=== PATIENT | male | born 1980 | race Caucasian/White ===

== ENCOUNTER 2019-06-18 12:16 | Emergency (ER) | payer BC ==
[2019-06-18] MEDS ORDERED: NA CHLORIDE 0.9% 1,000 ML ONE ×2 (13:10→16:17)
[2019-06-18] MEDS ORDERED: FAMOTIDINE 20 MG/2 ML VIAL IV ONE (13:10)
[2019-06-18 13:24] LABS: Absolute Lymphocytes (CBC) 1.5 K/uL (0.7-4.9); Basophils % 0.7 % (0-1.3); Lymphocytes % 22.1 % (15.3-44.8); MPV 6.1 fL (7.6-11.3); RBC Red Blood Cell Count 3.67 M/uL (4.33-5.43)
[2019-06-18 13:35] LABS: ALT/SGPT 8 U/L (12-78); AST/SGOT 6 U/L (15-37); Albumin 1.8 g/dL (3.4-5.0); Alkaline Phosphatase 37 U/L (45-117); BUN Blood Urea Nitrogen 13 mg/dL (7-18); Bicarbonate 27 mmol/L (21-32); Bilirubin Direct < 0.1 mg/dL (0-0.2); Bilirubin Total 0.1 mg/dL (0.2-1.0); Glucose Level 96 mg/dL (74-106); Lipase 99 U/L (73-393); Potassium 3.6 mmol/L (3.5-5.1); Protein, Total 5.9 g/dL (6.4-8.2); Sodium Level 139 mmol/L (136-145)
--- NOTE | 2019-06-18 14:33 | RAD REPORT ---
EXAM DESCRIPTION: CTAbdomen Pelvis W Contrast - 06/18/2019 2:14 pm CLINICAL HISTORY: Abdominal pain. Diarrhea;Abd pain COMPARISON: No comparisons TECHNIQUE: Biphasic CT imaging of the abdomen and pelvis was performed with 100 ml non-ionic IV cont rast. All CT scans are performed using dose optimization technique as appropriate and may include automated exposure control or mA/KV adjustment according to patient size. FINDINGS: The lung bases are clear. The liver, spleen, pancreas, adrenal glands and kidneys are within normal limits. No bowel obstruction, free air or abscess. Moderate inflammatory changes are present involving the co puneet. The appendix is not identified as a discrete structure, however, no secondary findings of append icitis are identified. Mild free fluid is seen in the pelvis. No evidence of significant lymphadenop athy. No suspicious bony findings. IMPRESSION: Moderate diffuse colitis pattern is present. No pneumatosis coli seen.
--- NOTE | 2019-06-18 16:57 | ER ---
Nurse's Notes [facility] Name: Jose Armando Culver Age: 39 yrs Sex: Male : 1980 Arrival Date: 06/18/2019 Time: 12:19 Bed 20 Private MD: Margaret Espinoza H Diagnosis: Diarrhea, unspecified;Ulcerative (chronic) pancolitis Presentation: 06/17 12:24 Chief complaint: Patient states: Walking around the kitchen when suddenly passed out. ca1 Fell backward against the wall. Denies any pain at this time. Denies cough, congestion and fever. Coronavirus screen: Patient denies fever greater than 100.4F, cough, shortness of breath, or difficulty breathing. Proceed with normal triage process. Ebola Screen: Patient negative for fever greater than or equal to 101.5 degrees Fahrenheit, and additional compatible Ebola Virus Disease symptoms Patient denies exposure to infectious person. Patient denies travel to an Ebola-affected area in the 21 days before illness onset. No symptoms or risks identified at this time. Initial Sepsis Screen: Does the patient meet any 2 criteria? No. Patient's initial sepsis screen is negative. Does the patient have a suspected source of infection? No. Patient's initial sepsis screen is negative. Risk Assessment: Do you want to hurt yourself or someone else? Patient reports no desire to harm self or others. Onset of symptoms was June 18, 2019. 12:24 Method Of Arrival: Ambulatory ca1 12:24 Acuity: JOHN 3 ca1 Triage Assessment: 13:18 General: Appears in no apparent distress. uncomfortable, Behavior is calm, cooperative, vc appropriate for age. Pain:. Historical: - Allergies: 12:28 No Known Allergies; ca1 - Home Meds: 12:28 mesalamine oral oral 1 cap 2 times per day [Active]; ca1 - PMHx: 12:28 Ulcerative cholitis; ca1 - PSHx: 12:28 None; ca1 - Immunization history:: Adult Immunizations up to date, Flu vaccine is not up to date. - Social history:: Smoking status: Patient denies any tobacco usage or history of. Screenin:17 Abuse screen: Denies threats or abuse. Nutritional screening: No deficits noted. vc Tuberculosis screening: No symptoms or risk factors identified. Fall Risk Fall in past 12 months (25 points). No secondary diagnosis (0 pts). IV access (20 points). Ambulatory Aid- None/Bed Rest/Nurse Assist (0 pts). Gait- Normal/Bed Rest/Wheelchair (0 pts) Mental Status- Oriented to own ability (0 pts). Total Magallon Fall Scale indicates High Risk Score (45 or more points). Frequent Obs/Assessments Occuring. Assessment: 13:00 General: Appears in no apparent distress. uncomfortable, Behavior is calm, cooperative, vc appropriate for age. Pain: Complains of pain in abdomen. Neuro: Level of Consciousness is awake, alert, obeys commands, Oriented to person, place, time, situation. Cardiovascular: Capillary refill < 3 seconds Patient's skin is warm and dry. Respiratory: Respiratory effort is even, unlabored, Respiratory pattern is regular, symmetrical. GI: Bowel sounds present X 4 quads. Abd is soft Abdomen is tender to palpation. GI: Stools are reported to be diarrhea. Reports lower abdominal pain, upper abdominal pain, diarrhea. : No signs and/or symptoms were reported regarding the genitourinary system. 14:00 Reassessment: Patient and/or family updated on plan of care and expected duration. Pain vc level reassessed. Patient is alert, oriented x 3, equal unlabored respirations, skin warm/dry/pink. 15:00 Reassessment: Patient appears in no apparent distress at this time. Patient and/or vc family updated on plan of care and expected duration. Pain level reassessed. Patient is alert, oriented x 3, equal unlabored respirations, skin warm/dry/pink. 16:00 Reassessment: Patient appears in no apparent distress at this time. Patient and/or vc family updated on plan of care and expected duration. Pain level reassessed. Patient is alert, oriented x 3, equal unlabored respirations, skin warm/dry/pink. Patient states feeling better. 17:00 Reassessment: Patient appears in no apparent distress at this time. Patient and/or vc family updated on plan of care and expected duration. Pain level reassessed. Patient is alert, oriented x 3, equal unlabored respirations, skin warm/dry/pink. Patient states feeling better. Patient states symptoms have improved. Vital Signs: 12:24 BP 103 / 74; Pulse 114; Resp 17 S; Temp 97.9(TE); Pulse Ox 100% on R/A; Weight 74.84 kg ca1 (R); Height 5 ft. 10 in. (177.80 cm); Pain 0/10; 13:22 BP 96 / 63 Supine; Pulse 95; lt1 13:22 BP 91 / 67 Sitting; Pulse 104; lt1 13:22 BP 92 / 71 Standing; Pulse 124; lt1 15:09 BP 102 / 70; Pulse 90; Resp 16; Pulse Ox 100% ; lt1 12:24 Body Mass Index 23.67 (74.84 kg, 177.80 cm) ca1 ED Course: 12:19 Patient arrived in ED. ag5 12:19 Margaret Espinoza DO is Private Physician. ag5 12:27 Triage completed. ca1 12:28 Arm band placed on right wrist. ca1 12:33 Josué Kemp MD is Attending Physician. kdr 12:45 Darrell Horowitz PA is PHCP. cp 13:07 Initial lab(s) drawn, by nd, sent to lab. Inserted saline lock: 20 gauge in right lt1 antecubital area, using aseptic technique. 13:08 Type And Screen Sent. lt1 13:11 Mony Evans, RN is Primary Nurse. vc 13:25 Type And Screen Sent. lt1 13:25 Basic Metabolic Panel Sent. lt1 13:25 CBC with Diff Sent. lt1 13:25 Creatinine for Radiology Sent. lt1 13:25 Hepatic Function Sent. lt1 13:25 Lipase Sent. lt1 14:17 CT Abd/Pelvis - IV Contrast Only In Process Unspecified. EDMS 16:41 Call light in reach. Door closed. Lights dimmed. Warm blanket given. lt1 16:55 Margaret Espinoza DO is Referral Physician. kdr 16:55 Ladan Carranza MD is Referral Physician. kdr 17:22 No provider procedures requiring assistance completed. IV discontinued, intact, vc bleeding controlled, No redness/swelling at site. Pressure dressing applied. Administered Medications: 13:35 Drug: Pepcid 20 mg Route: IVP; Site: right antecubital; vc 14:30 Follow up: Response: No adverse reaction vc 13:38 Drug: NS 0.9% 1000 ml Route: IV; Rate: 1 bolus; Site: right antecubital; vc 14:40 Follow up: IV Status: Completed infusion; IV Intake: 1000ml vc 16:25 Drug: NS 0.9% 1000 ml Route: IV; Rate: 1 bolus; Site: right antecubital; vc 17:24 Follow up: IV Status: Completed infusion; IV Intake: 600ml vc 17:23 Drug: SOLU-Medrol 125 mg Route: IVP; Site: right antecubital; vc 17:24 Follow up: Response: No adverse reaction; Medication administered at discharge. vc Intake: 14:40 IV: 1000ml; Total: 1000ml. vc 17:24 IV: 600ml; Total: 1600ml. vc Outcome: 16:56 Discharge ordered by . kdr 17:22 Discharged to home ambulatory. vc 17:22 Condition: improved 17:22 Discharge instructions given to patient, Instructed on discharge instructions, follow up and referral plans. medication usage, Demonstrated understanding of instructions, follow-up care, medications, Prescriptions given X 3. 17:25 Patient left the ED. vc Signatures: Dispatcher [employer] EDMS Josué Kemp MD MD kdr Darrell Horowitz PA PA cp Acob, Cheryl, RN RN ca1 Oneil Valenzuela ag5 Layne Ware lt1 Mony Evans RN RN vc
--- NOTE | 2019-06-18 16:57 | EDPHYS ---
Physician Documentation [facility] Name: Jose Armando Culver Age: 39 yrs Sex: Male : 1980 Arrival Date: 06/18/2019 Time: 12:19 Bed 20 Private MD: Margaret Espinoza H ED Physician Josué Kemp HPI: 06/17 13:44 This 39 yrs old Male presents to ER via Ambulatory with complaints of kdr Abdominal Problem, Passed Out Prior To Arrival. 13:44 The patient has experienced syncope, became unresponsive, collapsed, lost kdr consciousness. Onset: The symptoms/episode began/occurred suddenly, just prior to arrival. Duration: This was a single episode, that lasted an unknown period of time. Context: the episode(s) was witnessed, by no one, occurred at home, occurred while the patient was standing, Just prior to the episode the patient experienced dizziness, lightheadedness, weakness. Associated injury: The patient did not suffer any apparent associated injury. Associated signs and symptoms: Pertinent positives: diarrhea, weakness. Current symptoms: Generally weak. The patient has not experienced similar symptoms in the past. The patient has been recently seen by a physician: The patient had a colonoscopy about 10 days ago and was told that he had significant ulcerative colitis. The patient has lost 30# in the last 4 - 6 weeks and has been diagnosed with UC. Historical: - Allergies: 12:28 No Known Allergies; ca1 - Home Meds: 12:28 mesalamine oral oral 1 cap 2 times per day [Active]; ca1 - PMHx: 12:28 Ulcerative cholitis; ca1 - PSHx: 12:28 None; ca1 - Immunization history:: Adult Immunizations up to date, Flu vaccine is not up to date. - Social history:: Smoking status: Patient denies any tobacco usage or history of. ROS: 13:44 Constitutional: Negative for fever, chills, and weight loss, Eyes: Negative for injury, kdr pain, redness, and discharge, ENT: Negative for injury, pain, and discharge, Neck: Negative for injury, pain, and swelling, Cardiovascular: Negative for chest pain, palpitations, and edema, Respiratory: Negative for shortness of breath, cough, wheezing, and pleuritic chest pain, Back: Negative for injury and pain, : Negative for injury, bleeding, discharge, and swelling, MS/Extremity: Negative for injury and deformity, Skin: Negative for injury, rash, and discoloration, Psych: Negative for depression, anxiety, suicide ideation, homicidal ideation, and hallucinations, Allergy/Immunology: Negative for hives, rash, and allergies, Endocrine: Negative for neck swelling, polydipsia, polyuria, polyphagia, and marked weight changes, Hematologic/Lymphatic: Negative for swollen nodes, abnormal bleeding, and unusual bruising. 13:44 Abdomen/GI: Positive for abdominal pain, nausea, diarrhea, abdominal cramps, abdominal distension, black/tarry stool, rectal bleeding. Exam: 13:44 Constitutional: This is a well developed, well nourished patient who is awake, alert, kdr and in no acute distress. Head/Face: Normocephalic, atraumatic. Eyes: Pupils equal round and reactive to light, extra-ocular motions intact. Lids and lashes normal. Conjunctiva and sclera are non-icteric and not injected. Cornea within normal limits. Periorbital areas with no swelling, redness, or edema. Neck: Trachea midline, no thyromegaly or masses palpated, and no cervical lymphadenopathy. Supple, full range of motion without nuchal rigidity, or vertebral point tenderness. No Meningismus. Chest/axilla: Normal chest wall appearance and motion. Nontender with no deformity. No lesions are appreciated. Cardiovascular: Regular rate and rhythm with a normal S1 and S2. No gallops, murmurs, or rubs. Normal PMI, no JVD. No pulse deficits. Respiratory: Lungs have equal breath sounds bilaterally, clear to auscultation and percussion. No rales, rhonchi or wheezes noted. No increased work of breathing, no retractions or nasal flaring. Back: No spinal tenderness. No costovertebral tenderness. Full range of motion. Skin: Warm, dry with normal turgor. Normal color with no rashes, no lesions, and no evidence of cellulitis. MS/ Extremity: Pulses equal, no cyanosis. Neurovascular intact. Full, normal range of motion. Neuro: Awake and alert, GCS 15, oriented to person, place, time, and situation. Cranial nerves II-XII grossly intact. Motor strength 5/5 in all extremities. Sensory grossly intact. Cerebellar exam normal. Normal gait. Psych: Awake, alert, with orientation to person, place and time. Behavior, mood, and affect are within normal limits. 13:44 Abdomen/GI: Inspection: abdomen appears normal, Bowel sounds: active, diminished, in all quadrants, Palpation: soft, mild abdominal tenderness. Vital Signs: 12:24 BP 103 / 74; Pulse 114; Resp 17 S; Temp 97.9(TE); Pulse Ox 100% on R/A; Weight 74.84 kg ca1 (R); Height 5 ft. 10 in. (177.80 cm); Pain 0/10; 13:22 BP 96 / 63 Supine; Pulse 95; lt1 13:22 BP 91 / 67 Sitting; Pulse 104; lt1 13:22 BP 92 / 71 Standing; Pulse 124; lt1 15:09 BP 102 / 70; Pulse 90; Resp 16; Pulse Ox 100% ; lt1 12:24 Body Mass Index 23.67 (74.84 kg, 177.80 cm) ca1 MDM: 12:49 Patient medically screened. 13:44 Data reviewed: vital signs, nurses notes, lab test result(s), radiologic studies. kdr Counseling: I had a detailed discussion with the patient and/or guardian regarding: the historical points, exam findings, and any diagnostic results supporting the discharge/admit diagnosis, lab results, radiology results. 06/17 12:44 Order name: Basic Metabolic Panel; Complete Time: 13:41 kdr 06/17 12:44 Order name: CBC with Diff; Complete Time: 13:41 kdr 06/17 12:44 Order name: Creatinine for Radiology; Complete Time: 13:41 [facility] 06/17 12:44 Order name: Hepatic Function; Complete Time: 13:41 kdr 06/17 12:44 Order name: Lipase; Complete Time: 13:41 kdr 06/17 12:44 Order name: Type And Screen; Complete Time: 14:08 kdr 06/17 13:43 Order name: Stool Culture [facility] 06/17 13:43 Order name: Rotavirus Antigen; Complete Time: 16:21 kdr 06/17 13:43 Order name: Ova And Parasites [facility] 06/17 13:43 Order name: Occult Blood; Complete Time: 16:21 kdr 06/17 13:43 Order name: Fecal Leukocyte Stain [facility] 06/17 13:43 Order name: CT Abd/Pelvis - IV Contrast Only; Complete Time: 16:21 kdr 06/17 15:59 Order name: ABO/RH no charge; Complete Time: 16:21 EDMS 06/17 12:44 Order name: IV Saline Lock; Complete Time: 13:08 kdr 06/17 12:44 Order name: Labs collected and sent; Complete Time: 13: kdr 06/17 12:44 Order name: Orthostatics; Complete Time: 13:12 kdr Administered Medications: 13:35 Drug: Pepcid 20 mg Route: IVP; Site: right antecubital; vc 14:30 Follow up: Response: No adverse reaction vc 13:38 Drug: NS 0.9% 1000 ml Route: IV; Rate: 1 bolus; Site: right antecubital; vc 14:40 Follow up: IV Status: Completed infusion; IV Intake: 1000ml vc 16:25 Drug: NS 0.9% 1000 ml Route: IV; Rate: 1 bolus; Site: right antecubital; vc 17:24 Follow up: IV Status: Completed infusion; IV Intake: 600ml vc 17:23 Drug: SOLU-Medrol 125 mg Route: IVP; Site: right antecubital; vc 17:24 Follow up: Response: No adverse reaction; Medication administered at discharge. vc Disposition: 06/18/19 16:56 Discharged to Home. Impression: Diarrhea, unspecified, Ulcerative (chronic) pancolitis. - Condition is Stable. - Discharge Instructions: Food Choices to Help Relieve Diarrhea, Adult, Diarrhea, Adult, [id number]. - Prescriptions for Flagyl 500 mg Oral Tablet - take 1 tablet by ORAL route every 6 hours for 10 days; 40 tablet. Cipro 500 mg Oral Tablet - take 1 tablet by ORAL route every 12 hours for 7 days; 14 tablet. Medrol (Scott) 4 mg Oral Tablets, Dose Pack - take 1 tablet by ORAL route as directed - follow package instructions; 1 packet. - Medication Reconciliation Form, Thank You Letter, Antibiotic Education, Work release form form. - Follow up: Margaret Espinoza DO; When: 2 - 3 days; Reason: If symptoms return, Further diagnostic work-up, Recheck today's complaints, Continuance of care, Re-evaluation by your physician. Follow up: Ladan Carranza MD; When: Tomorrow; Reason: If symptoms return, Further diagnostic work-up, Recheck today's complaints, Continuance of care, Re-evaluation by your physician. - Problem is an ongoing problem. - Symptoms have improved. Signatures: Dispatcher [employer] Josué Leblanc MD MD kdr Page, Corey, PA PA cp Yvonne Mercado, RN RN ca1 Mony Evans RN RN vc Corrections: (The following items were deleted from the chart) 17:25 16:56 06/18/2019 16:56 Discharged to Home. Impression: Diarrhea, unspecified; vc Ulcerative (chronic) pancolitis. Condition is Stable. Forms are Medication Reconciliation Form, Thank You Letter, Antibiotic Education, Prescription Opioid Use. Follow up: Margaret Espinoza; When: 2 - 3 days; Reason: If symptoms return, Further diagnostic work-up, Recheck today's complaints, Continuance of care, Re-evaluation by your physician. Follow up: Ladan Carranza; When: Tomorrow; Reason: If symptoms return, Further diagnostic work-up, Recheck today's complaints, Continuance of care, Re-evaluation by your physician. Problem is an ongoing problem. Symptoms have improved. kdr
[2019-06-18] MEDS ORDERED: METHYLPREDNISOLONE 125 MG INJ ONE (17:10)
[2019-06-18 17:33] VITALS: TEMP 97.9; O2SAT 100
[2019-06-18 17:36] VITALS: BP 102/70
== END 2019-06-18 17:25 | disposition home or self-care (01) ==
LOC: ER 12:16
DX: K51.00 Ulcerative (chronic) pancolitis without complications (principal)
CPT/HCPCS: 96361; 87045; 85025; 80048; 36415; 86900; 86850; 89055; 87177; 82274; 86901; 80076; 87046; 87209; 83690; 87425; 74177; 96375; 96374; 99284; Q9967; J7030 ×2; J2930

== ENCOUNTER 2019-06-29 09:52 | Observation (INO) | payer BC ==
[2019-06-29] MEDS ORDERED: NA CHLORIDE 0.9% 3,000 ML ONE (10:26)
[2019-06-29 10:29] LABS: Protime INR 1.27
[2019-06-29 10:37] LABS: Absolute Lymphocytes (CBC) 1.5 K/uL (0.7-4.9); Basophils % 0.3 % (0-1.3); Hematocrit 34.4 % (39.6-49.0); Lymphocytes % 16.8 % (15.3-44.8); RBC Red Blood Cell Count 3.97 M/uL (4.33-5.43)
--- NOTE | 2019-06-29 10:40 | RAD REPORT ---
EXAM DESCRIPTION: RAD - Chest Single View - 06/29/2019 10:32 am CLINICAL HISTORY: CHEST PAIN Chest pain. COMPARISON: CHEST PA AND LAT 2 VIEW dated 08/08/2010 FINDINGS: Portable technique limits examination quality. The lungs are grossly clear. The heart is normal in size. No displaced fractures. IMPRESSION: No acute intrathoracic process suspected.
[2019-06-29 10:50] LABS: ALT/SGPT 16 U/L (12-78); AST/SGOT 4 U/L (15-37); Albumin 1.9 g/dL (3.4-5.0); Alkaline Phosphatase 44 U/L (45-117); BUN Blood Urea Nitrogen 18 mg/dL (7-18); Bicarbonate 27 mmol/L (21-32); Bilirubin Direct < 0.1 mg/dL (0-0.2); Bilirubin Total 0.2 mg/dL (0.2-1.0); Glucose Level 128 mg/dL (74-106); Magnesium 1.9 mg/dL (1.8-2.4); NT PRO-BNP 4868 pg/mL (<125); Potassium 3.6 mmol/L (3.5-5.1); Protein, Total 6.5 g/dL (6.4-8.2); Sodium Level 136 mmol/L (136-145); Troponin (Emerg Dept Use Only) < 0.02 ng/mL (0.0-0.045)
--- NOTE | 2019-06-29 11:14 | RAD REPORT ---
EXAM DESCRIPTION: CT - Chest For Pe Angio - 06/29/2019 11:06 am CLINICAL HISTORY: Chest pain. Chest pain;Dyspnea COMPARISON: Chest Single View dated 06/29/2019 TECHNIQUE: CT angiogram of the pulmonary arteries was performed with MIP. All CT scans are performed using dose optimization technique as appropriate and may include automated exposure control or mA/KV adjustment according to patient size. FINDINGS: No evidence of pulmonary thromboembolism. No acute aortic finding demonstrated. The lungs are clear. No significant pericardial or pleural fluid. No concerning bony finding. IMPRESSION: No evidence of pulmonary thromboembolism. No acute lung findings.
--- NOTE | 2019-06-29 11:31 | EDPHYS ---
Physician Documentation [facility] Name: Jose Armando Culver Age: 39 yrs Sex: Male : 1980 Arrival Date: 06/29/2019 Time: 09:56 Bed 8 Private MD: Margaret Espinoza H ED Physician Darrell Robledo HPI: 06/28 10:14 This 39 yrs old Male presents to ER via Ambulatory with complaints of Chest edwardo Pain, Breathing Difficulty, Dizziness. 10:14 The patient or guardian reports chest pain that is located primarily in the anterior edwardo chest wall, left. Onset: 1 day(s) ago. The pain does not radiate. Associated signs and symptoms: Pertinent positives: shortness of breath. The chest pain is described as sharp. Duration: The patient or guardian reports a single episode, that is still ongoing. Modifying factors: The symptoms are alleviated by nothing. the symptoms are aggravated by nothing. Severity of pain: At its worst the pain was moderate in the emergency department the pain is unchanged. The patient has not experienced similar symptoms in the past. Historical: - Allergies: 10:13 No Known Allergies; ss - Home Meds: 10:13 mesalamine Oral 1 cap 2 times per day [Active]; Prednisone Oral [Active]; Flagyl Oral ss [Active]; - PMHx: 10:13 Ulcerative cholitis; ss - PSHx: 10:13 L knee repair; ss - Immunization history:: Adult Immunizations up to date. - Social history:: Smoking status: Patient denies any tobacco usage or history of. - Family history:: not pertinent. ROS: 10:14 Constitutional: Negative for fever, chills, and weight loss, Eyes: Negative for injury, edwardo pain, redness, and discharge, ENT: Negative for injury, pain, and discharge, Neck: Negative for injury, pain, and swelling, Respiratory: Negative for shortness of breath, cough, wheezing, and pleuritic chest pain, Abdomen/GI: Negative for abdominal pain, nausea, vomiting, diarrhea, and constipation, Back: Negative for injury and pain, : Negative for injury, bleeding, discharge, and swelling, MS/Extremity: Negative for injury and deformity, Skin: Negative for injury, rash, and discoloration, Neuro: Negative for headache, weakness, numbness, tingling, and seizure, Psych: Negative for depression, anxiety, suicide ideation, homicidal ideation, and hallucinations, Allergy/Immunology: Negative for hives, rash, and allergies, Endocrine: Negative for neck swelling, polydipsia, polyuria, polyphagia, and marked weight changes, Hematologic/Lymphatic: Negative for swollen nodes, abnormal bleeding, and unusual bruising. 10:14 Cardiovascular: Positive for chest pain, of the chest. 10:14 Skin: Positive for pallor. Exam: 10:14 Constitutional: This is a well developed, well nourished patient who is awake, alert, edwardo and in no acute distress. Head/Face: Normocephalic, atraumatic. Eyes: Pupils equal round and reactive to light, extra-ocular motions intact. Lids and lashes normal. Conjunctiva and sclera are non-icteric and not injected. Cornea within normal limits. Periorbital areas with no swelling, redness, or edema. ENT: Nares patent. No nasal discharge, no septal abnormalities noted. Tympanic membranes are normal and external auditory canals are clear. Oropharynx with no redness, swelling, or masses, exudates, or evidence of obstruction, uvula midline. Mucous membranes moist. Neck: Trachea midline, no thyromegaly or masses palpated, and no cervical lymphadenopathy. Supple, full range of motion without nuchal rigidity, or vertebral point tenderness. No Meningismus. Chest/axilla: Normal chest wall appearance and motion. Nontender with no deformity. No lesions are appreciated. Abdomen/GI: Soft, non-tender, with normal bowel sounds. No distension or tympany. No guarding or rebound. No evidence of tenderness throughout. Back: No spinal tenderness. No costovertebral tenderness. Full range of motion. Male : Normal genitalia with no discharge or lesions. MS/ Extremity: Pulses equal, no cyanosis. Neurovascular intact. Full, normal range of motion. Neuro: Awake and alert, GCS 15, oriented to person, place, time, and situation. Cranial nerves II-XII grossly intact. Motor strength 5/5 in all extremities. Sensory grossly intact. Cerebellar exam normal. Normal gait. Psych: Awake, alert, with orientation to person, place and time. Behavior, mood, and affect are within normal limits. 10:14 Cardiovascular: Rate: tachycardic, Rhythm: regular, Pulses: Heart sounds: normal, normal S1and S2, no S3 or S4, no murmur, no rub, no gallop, Edema: is not appreciated, JVD: is not appreciated. Vital Signs: 10:08 BP 86 / 70; Pulse 113; Resp 18; Temp 97.4(TE); Pulse Ox 100% on R/A; Weight 68.04 kg; ss Height 5 ft. 10 in. (177.80 cm); Pain 0/10; 10:29 BP 125 / 65; Pulse 108; Resp 17; Temp 97; Pulse Ox 100% ; sv 11:30 BP 119 / 72; Pulse 92; Resp 14; Pulse Ox 99% on R/A; hb 12:45 BP 93 / 63; Pulse 89; Resp 13; Pulse Ox 100% ; sv 13:30 BP 89 / 62; Pulse 85; Resp 14; Pulse Ox 100% ; sv 14:15 BP 90 / 63; Pulse 88; Resp 15; Pulse Ox 100% ; sv 15:14 BP 92 / 59; Pulse 88; Resp 13; Pulse Ox 100% ; sv 10:08 Body Mass Index 21.52 (68.04 kg, 177.80 cm) ss MDM: 10:00 Patient medically screened. [facility] 10:19 Data reviewed: vital signs, nurses notes, lab test result(s), EKG, radiologic studies, [facility] CT scan, plain films. 06/28 10:03 Order name: Basic Metabolic Panel; Complete Time: 11:27 [facility] 06/28 10:03 Order name: CBC with Diff; Complete Time: 11: [facility] 06/28 10:03 Order name: LFT's; Complete Time: 11: [facility] 06/28 10:03 Order name: Magnesium; Complete Time: 11:27 [facility] 06/28 10:03 Order name: NT PRO-BNP; Complete Time: 11:27 [facility] 06/28 10:03 Order name: PT-INR; Complete Time: 11: [facility] 06/28 10:03 Order name: Troponin (emerg Dept Use Only); Complete Time: 11:27 [facility] 06/28 10:03 Order name: XRAY Chest (1 view); Complete Time: 11:27 [facility] 06/28 10:03 Order name: Urine Culture [facility] 06/28 10:13 Order name: Blood Culture Adult (2) [facility] 06/28 10:13 Order name: Lactate; Complete Time: 11:27 [facility] 06/28 10:20 Order name: CT Chest For PE Angio; Complete Time: 11:27 [facility] 06/28 11:28 Order name: Echo w/ Doppler [facility] 06/28 12:09 Order name: Urine Dipstick--Ancillary (enter results) 06/28 10:03 Order name: EKG; Complete Time: 10:03 [facility] 06/28 10:03 Order name: Cardiac monitoring; Complete Time: 10:17 [facility] 06/28 10:03 Order name: EKG - Nurse/Tech; Complete Time: 10:29 [facility] 06/28 10:03 Order name: IV Saline Lock; Complete Time: 10: [facility] 06/28 10:03 Order name: Labs collected and sent; Complete Time: 10: [facility] 06/28 10:03 Order name: O2 Per Protocol; Complete Time: 10: [facility] 06/28 10:03 Order name: O2 Sat Monitoring; Complete Time: 10:17 [facility] 06/28 10:03 Order name: Urine Dipstick-Ancillary (obtain specimen); Complete Time: 12:08 [facility] Administered Medications: 10:28 Drug: NS 0.9% 1000 ml Route: IV; Rate: 1 bolus; Site: right antecubital; sv 12:49 Follow up: Response: No adverse reaction; IV Status: Completed infusion; IV Intake: sv 1000ml 10:28 Drug: NS 0.9% 1000 ml Route: IV; Rate: 1 bolus; Site: right antecubital; sv 12:48 Follow up: Response: No adverse reaction; IV Status: Completed infusion; IV Intake: sv 1000ml 12:08 Drug: Aspirin 162 mg Route: PO; sv 12:49 Follow up: Response: No adverse reaction sv 12:08 Drug: Pepcid 20 mg Route: IVP; Site: right antecubital; sv 12:49 Follow up: Response: No adverse reaction sv 12:09 Drug: NS 0.9% 1000 ml Route: IV; Rate: 125 ml/hr; Site: right antecubital; sv 16:00 Follow up: Response: No adverse reaction; IV Status: Infusion continued upon admission sv Disposition: 06/29/19 11:30 Hospitalization ordered by Lennox Terry for Inpatient Admission. Preliminary diagnosis are Other chest pain, Dyspnea, Hypotension. - Bed requested for Telemetry/MedSurg (Inpatient). - Status is Inpatient Admission. sv - Condition is Stable. - Problem is new. - Symptoms have improved. Signatures: Dispatcher [employer] EDMS Clay IlsaTamera Corley, RN RN Darrell Juárez MD MD cha Smirch, Shelby, RN RN ss Corrections: (The following items were deleted from the chart) 13:52 11:30 Hospitalization Ordered by Lennox Terry DO for Inpatient Admission. Preliminary bd diagnosis is Other chest pain; Dyspnea; Hypotension. Bed requested for Telemetry/MedSurg (Inpatient). Status is Inpatient Admission. Condition is Stable. Problem is new. Symptoms have improved. [facility] 16:10 13:52 06/29/2019 11:30 Hospitalization Ordered by Lennox Terry DO for Inpatient sv Admission. Preliminary diagnosis is Other chest pain; Dyspnea; Hypotension. Bed requested for Telemetry/MedSurg (Inpatient). Status is Inpatient Admission. Condition is Stable. Problem is new. Symptoms have improved. bd
--- NOTE | 2019-06-29 11:31 | ER ---
Nurse's Notes [facility] Name: Jose Armando Culver Age: 39 yrs Sex: Male : 1980 Arrival Date: 06/29/2019 Time: 09:56 Bed 8 Private MD: Margaret Espinoza H Diagnosis: Other chest pain;Dyspnea;Hypotension Presentation: 06/28 10:08 Chief complaint: Patient states: Dizziness and lightheadedness with intermittent L ss sided chest wall pain and shortness of breath x 2 weeks. Pt reports he was seen in the ER last week for the dizziness and sent home. Pt is here today because he is still dizzy, but the pain is getting worse. Recently diagnosed with UC and given Flagyl and Prednisone to take. Coronavirus screen: Proceed with normal triage. Patient denies a cough. Patient reports shortness of breath or difficulty breathing. Patient denies measured and/or subjective temperature greater than 100.4F prior to today's visit. Patient denies travel on a cruise ship or to a country the [facility] currently lists as an affected area. Patient denies contact with known and/or suspected case of COVID-19. Ebola Screen: Patient denies exposure to infectious person. Patient denies travel to an Ebola-affected area in the 21 days before illness onset. Initial Sepsis Screen: Does the patient meet any 2 criteria? Systolic BP < 90 mmHg. HR > 90 bpm. Does the patient have a suspected source of infection? No. Patient's initial sepsis screen is negative. Risk Assessment: Do you want to hurt yourself or someone else? Patient reports no desire to harm self or others. Onset of symptoms was June 15, 2019. 10:08 Method Of Arrival: Ambulatory ss 10:08 Acuity: JOHN 2 ss Historical: - Allergies: 10:13 No Known Allergies; ss - Home Meds: 10:13 mesalamine Oral 1 cap 2 times per day [Active]; Prednisone Oral [Active]; Flagyl Oral ss [Active]; - PMHx: 10:13 Ulcerative cholitis; ss - PSHx: 10:13 L knee repair; ss - Immunization history:: Adult Immunizations up to date. - Social history:: Smoking status: Patient denies any tobacco usage or history of. - Family history:: not pertinent. Screenin:16 Abuse screen: Denies threats or abuse. Denies injuries from another. Nutritional hb screening: No deficits noted. Tuberculosis screening: No symptoms or risk factors identified. Fall Risk None identified. Assessment: 10:15 General: Appears in no apparent distress. uncomfortable, slender, Behavior is calm, sv cooperative, appropriate for age. Pain: Complains of pain in left lateral anterior chest Pain does not radiate. Pain began 2 weeks ago. Neuro: Level of Consciousness is awake, alert, obeys commands, Oriented to person, place, time, situation, Moves all extremities. Full function. Neuro: Reports dizziness. Cardiovascular: Patient's skin is warm and dry. Respiratory: Airway is patent Respiratory effort is even, unlabored, Respiratory pattern is regular, symmetrical. Respiratory: Reports shortness of breath on exertion. GI: Reports diarrhea. Derm: Skin is pale. 11:30 Reassessment: Patient appears in no apparent distress at this time. No changes from hb previously documented assessment. Patient and/or family updated on plan of care and expected duration. Pain level reassessed. 13:00 Reassessment: Patient appears in no apparent distress at this time. No changes from sv previously documented assessment. Patient and/or family updated on plan of care and expected duration. Pain level reassessed. Patient is alert, oriented x 3, equal unlabored respirations, skin warm/dry/pink. 15:13 Reassessment: Patient appears in no apparent distress at this time. No changes from sv previously documented assessment. Patient and/or family updated on plan of care and expected duration. Pain level reassessed. Patient is alert, oriented x 3, equal unlabored respirations, skin warm/dry/pink. Patient states feeling better. 16:00 Reassessment: Patient appears in no apparent distress at this time. Patient and/or sv family updated on plan of care and expected duration. Pain level reassessed. Patient is alert, oriented x 3, equal unlabored respirations, skin warm/dry/pink. Patient states feeling better. Vital Signs: 10:08 BP 86 / 70; Pulse 113; Resp 18; Temp 97.4(TE); Pulse Ox 100% on R/A; Weight 68.04 kg; ss Height 5 ft. 10 in. (177.80 cm); Pain 0/10; 10:29 BP 125 / 65; Pulse 108; Resp 17; Temp 97; Pulse Ox 100% ; sv 11:30 BP 119 / 72; Pulse 92; Resp 14; Pulse Ox 99% on R/A; hb 12:45 BP 93 / 63; Pulse 89; Resp 13; Pulse Ox 100% ; sv 13:30 BP 89 / 62; Pulse 85; Resp 14; Pulse Ox 100% ; sv 14:15 BP 90 / 63; Pulse 88; Resp 15; Pulse Ox 100% ; sv 15:14 BP 92 / 59; Pulse 88; Resp 13; Pulse Ox 100% ; sv 10:08 Body Mass Index 21.52 (68.04 kg, 177.80 cm) ED Course: 09:56 Patient arrived in ED. mr 09:56 Margaret Espinoza DO is Private Physician. mr 09:59 Darrell Robledo MD is Attending Physician. edwardo 10:05 EKG done, by information technology account manager. reviewed by Darrell Robledo MD. at1 10:08 Patient maintains SpO2 saturation greater than 95% on room air. hb 10:12 Triage completed. ss 10:13 Arm band placed on right wrist. ss 10:16 Patient has correct armband on for positive identification. Placed in gown. Bed in low hb position. Call light in reach. Side rails up X 1. transportation superintendent on. Pulse ox on. NIBP on. 10:17 Inserted saline lock: 20 gauge in right antecubital area, using aseptic technique. hb Blood collected. 10:25 X-ray(s) taken. sv 10:29 Door closed. Warm blanket given. Pillow given. Head of bed elevated. sv 10:32 XRAY Chest (1 view) In Process Unspecified. EDMS 10:32 Tamera Pham, RN is Primary Nurse. sv 10:32 Awaiting lab results, Awaiting CT Scan. sv 11:06 CT Chest For PE Angio In Process Unspecified. EDMS 11:29 Lennox Terry DO is Hospitalizing Provider. edwardo 12:51 Awaiting bed assignment. sv 15:13 No provider procedures requiring assistance completed. Patient admitted, IV remains in sv place. intact. Administered Medications: 10:28 Drug: NS 0.9% 1000 ml Route: IV; Rate: 1 bolus; Site: right antecubital; sv 12:49 Follow up: Response: No adverse reaction; IV Status: Completed infusion; IV Intake: sv 1000ml 10:28 Drug: NS 0.9% 1000 ml Route: IV; Rate: 1 bolus; Site: right antecubital; sv 12:48 Follow up: Response: No adverse reaction; IV Status: Completed infusion; IV Intake: sv 1000ml 12:08 Drug: Aspirin 162 mg Route: PO; sv 12:49 Follow up: Response: No adverse reaction sv 12:08 Drug: Pepcid 20 mg Route: IVP; Site: right antecubital; sv 12:49 Follow up: Response: No adverse reaction sv 12:09 Drug: NS 0.9% 1000 ml Route: IV; Rate: 125 ml/hr; Site: right antecubital; sv 16:00 Follow up: Response: No adverse reaction; IV Status: Infusion continued upon admission sv Intake: 12:48 IV: 1000ml; Total: 1000ml. sv 12:49 IV: 1000ml; Total: 2000ml. sv Outcome: 11:30 Decision to Hospitalize by Provider. edwardo 15:19 Admitted to Tele accompanied by tech, via stretcher, room 221, with chart, Report sv called to Matilde RN 15:19 Condition: stable 15:19 Instructed on the need for admit. 16:00 Patient left the ED. sv Signatures: Dispatcher [employer] EDMS Tamera Pham RN RN Darrell Juárez MD MD cha Rivera, Janet mr Le Ashraf, SARA RUIZ Leta Herzog, floral artist EKG Tat1 Kala Vargas RN RN hb Corrections: (The following items were deleted from the chart) 14:30 10:29 BP 125 / 65; Pulse 108bpm; Resp 17bpm; Pulse Ox 100%; sv sv 16:11 15:13 Reassessment: Patient appears in no apparent distress at this time. No changes sv from previously documented assessment. Patient and/or family updated on plan of care and expected duration. Pain level reassessed. Patient is alert, oriented x 3, equal unlabored respirations, skin warm/dry/pink. sv 16:11 16:10 Patient left the ED. sv sv
[2019-06-29] MEDS ORDERED: ASPIRIN 81 MG CHEWABLE TABLET ONE (11:43)
[2019-06-29] MEDS ORDERED: FAMOTIDINE 20 MG/2 ML VIAL IV ONE (11:43)
--- NOTE | 2019-06-29 12:40 | P.HP ---
Certification for Inpatient Patient admitted to: Observation With expected LOS: <2 Midnights Patient will require the following post-hospital care: None Practitioner: I am a practitioner with admitting privileges, knowledge of patient current condition, hospital course, and medical plan of care. Services: Services provided to patient in accordance with Admission requirements found in Title 42 Section 412.3 of the Code of Federal Regulations Patient History Date of Service: 06/29/19 Primary Care Provider: Dr. Espinoza; GI-Dr. Carranza Reason for admission: SOB, chest pain History of Present Illness: 39 yo CM with history of ulcerative colitis recently started on mesalamine/ prednisone. He presented with shortness of breath, chest pain, and lightheadedness. Patient recently diagnosed and placed on medication for ulcerative colitis. When placed initially he his symptoms of chronic diarrhea improved. As of late his symptoms had been getting slightly worse. He denies any fever, chills. He denies any recent exposure to travel or other COVID related issues. Patient has noted some weight loss about 30 lb over the past month. In the ER he was evaluated. Patient was initially hypotensive and tachycardic. Room-air saturations within normal range. Patient received IV fluids. Chest x-ray unremarkable. CT chest shows no evidence of pneumonia or pulmonary embolism. White count 8.7, hemoglobin 11. Sodium 136, potassium 3.6. GFR greater than 90. Glucose 128. AST ALT and alk-phos within normal range. Troponin negative. BNP slightly elevated. If patient admitted for further evaluation. When I saw the patient ER, he he appeared stable. Blood pressures improved. He did not appear septic. Patient reports chronic diarrhea. He has about 5-10 bowel movements per day. It has been a lot worse. Overall stable. Patient reports not taking enough oral intake.. Home medications list reviewed: Yes - Past Medical/Surgical History Diabetic: No -: Ulcerative colitis -: Left knee surgery -: Left wrist surgery Psychosocial/ Personal History: Patient . He works at a local [employer] - Family History Family History: Reviewed- Non-Contributory - Social History Smoking Status: Never smoker Alcohol use: Yes CD- Drugs: No Caffeine use: No Place of Residence: Home Review of Systems General: Weakness, As per HPI Eyes: Unremarkable ENT: Unremarkable Respiratory: Shortness of Breath, As per HPI Cardiovascular: Chest Pain, Light Headedness, As per HPI Gastrointestinal: Diarrhea, As per HPI Genitourinary: Unremarkable Musculoskeletal: Pedal edema Integumentary: Unremarkable Neurological: Weakness, As per HPI Lymphatics: Unremarkable Physical Examination - Physical Exam General: Alert, In no apparent distress, Cooperative, Cachectic HEENT: Atraumatic, Other (Dry mucous membranes) Neck: Supple Respiratory: Clear to auscultation bilaterally, Normal air movement Cardiovascular: Normal pulses, Regular rate/rhythm Gastrointestinal: Normal bowel sounds, Soft and benign, Non-distended, No tenderness, No masses, No rebound, No guarding Musculoskeletal: No erythema, No tenderness, No warmth Integumentary: No erythema, No warmth, No cyanosis, Tenderness/swelling ( Minimal pitting edema to the lower extremities) Neurological: Normal speech, Normal strength at 5/5 x4 extr, Normal tone, Normal affect - Studies Laboratory Data (last 24 hrs) 06/29/19 10:14: PT 14.9 H, INR 1.27 06/29/19 10:14: WBC 8.7 D, Hgb 11.1 L, Hct 34.4 L, Plt Count 793 H D 06/29/19 10:14: Sodium 136, Potassium 3.6, BUN 18, Creatinine 0.84, Glucose 128 H, Magnesium 1.9, Total Bilirubin 0.2, AST 4 L, ALT 16, Alkaline Phosphatase 44 L Assessment and Plan - Plan Impression: Chest pain, shortness of breath with dizziness secondary to orthostatic hypotension related to volume depletion complicated with ulcerative colitis Chronic diarrhea Plan: Chest pain, shortness of breath with dizziness secondary to orthostatic hypotension related to volume depletion complicated with ulcerative colitis: Patient will be admitted for further evaluation and observation. Case discussed with GI. Will continue with mesalamine and IV steroid. Will also start Cipro Flagyl. Will obtain stool cultures for further evaluation. Will assess for C diff colitis. Will continue IV fluids. Will provide DVT prophylaxis. If symptoms improved consider discharge as early as tomorrow. Will continue monitor closely. Chronic diarrhea: Continue as above. Will monitor closely. Discharge Plan: Home Plan to discharge in: 24 Hours - Advance Directives Does patient have a Living Will: No Does patient have a Durable POA for Healthcare: No - Code Status/Comfort Care Code Status Assessed: Yes (Patient is full code) Time Spent Managing Pts Care (In Minutes): 55
[2019-06-29 12:49] LABS: Urine Blood NEGATIVE (NEG); Urine Glucose NEGATIVE (NEG); Urine Protein NEGATIVE (NEG)
[2019-06-29] MEDS ORDERED: ONDANSETRON 4 MG/2 ML VIAL IV PRN (15:23)
[2019-06-29] MEDS ORDERED: ACETAMINOPHEN 500 MG TAB PO PRN (15:23)
[2019-06-29 16:32] VITALS: BMI 22.6
--- NOTE | 2019-06-29 16:48 | EKG ---
Test Date: 2019-06-29 Test Time: 10:00:02 [employer] Type Screw Machine Operator: DONOVAN MEASUREMENT RESULTS: Intervals: Rate: 105 RI: 120 QRSD: 88 QT: 314 QTc: 415 [place]: P: 50 RI: 120 QRS: 76 T: 71 INTERPRETIVE STATEMENTS: Sinus tachycardia Otherwise normal ECG No previous ECG available for comparison Electronically Signed On 06-29-19 16:47:11 CDT by Osbaldo Alexis
[2019-06-29] MEDS: METRONIDAZOLE 500mg IVPB 500 MG/100 ML BAG IV SCH (17:32)
[2019-06-29] MEDS: ENOXAPARIN 40 MG/0.4 ML SQ SCH (17:32)
[2019-06-29] MEDS ORDERED: NA CHLORIDE 0.9% 1,000 ML IV ONE (17:44)
[2019-06-29 20:02] LABS: BUN Blood Urea Nitrogen 14 mg/dL (7-18); Bicarbonate 28 mmol/L (21-32); Glucose Level 132 mg/dL (74-106); Potassium 3.9 mmol/L (3.5-5.1); Sodium Level 141 mmol/L (136-145)
[2019-06-29] MEDS: CIPROFLOXACIN 400mg IV 400 MG/200 ML BAG IV SCH (21:29)
[2019-06-29] MEDS: METHYLPREDNISOLONE 125 MG INJ IV SCH (21:29)
[2019-06-29] MEDS: NA CHLORIDE 0.9% 1,000 ML IV SCH (23:22)
[2019-06-30] MEDS: METRONIDAZOLE 500mg IVPB 500 MG/100 ML BAG IV SCH ×3 (00:38→16:37)
[2019-06-30 07:59] LABS: ALT/SGPT 12 U/L (12-78); AST/SGOT 6 U/L (15-37); Albumin 1.6 g/dL (3.4-5.0); Alkaline Phosphatase 40 U/L (45-117); BUN Blood Urea Nitrogen 12 mg/dL (7-18); Bicarbonate 26 mmol/L (21-32); Bilirubin Total 0.2 mg/dL (0.2-1.0); Glucose Level 139 mg/dL (74-106); Potassium 4.8 mmol/L (3.5-5.1); Protein, Total 5.5 g/dL (6.4-8.2); Sodium Level 139 mmol/L (136-145); Thyroid Stimulating Hormone 0.331 uIU/mL (0.360-3.740)
[2019-06-30] MEDS: ENOXAPARIN 40 MG/0.4 ML SQ SCH (08:26)
[2019-06-30] MEDS: METHYLPREDNISOLONE 125 MG INJ IV SCH ×2 (08:26→21:07)
[2019-06-30] MEDS: CIPROFLOXACIN 400mg IV 400 MG/200 ML BAG IV SCH ×2 (08:26→21:05)
[2019-06-30] MEDS: NA CHLORIDE 0.9% 1,000 ML IV SCH ×2 (08:28→15:23)
[2019-06-30 08:37] LABS: Absolute Lymphocytes (CBC) 0.7 K/uL (0.7-4.9); Hematocrit 29.6 % (39.6-49.0); Lymphocytes % 8.6 % (15.3-44.8); MPV 6.1 fL (7.6-11.3)
[2019-06-30] MEDS ORDERED: MESALAMINE 400 MG CAPSULE.DR PO SCH ×2 (09:00)
[2019-06-30] MEDS ORDERED: POTASSIUM CL SA 10 MEQ TAB PO ONE (09:00)
--- NOTE | 2019-06-30 11:08 | ECHO ---
HEIGHT: 5 ft 10 in WEIGHT: 158 lb 0 oz DATE OF STUDY: 06/30/[address]: Darrell Robledo MD 2-DIMENSIONAL: YES M.MODE: YES DOPPLER: YES COLOR FLOW: YES TDS: PORTABLE: DEFINITY: BUBBLE STUDY: DIAGNOSIS: CONGESTIVE HEART FAILURE/ CHEST PAIN/ DYSPNEA CARDIAC HISTORY: CATHERIZATION: NO SURGERY: NO PROSTHETIC VALVE: NO PACEMAKER: NO MEASUREMENTS (cm) DIASTOLIC (NORMALS) SYSTOLIC (NORMALS) IVSd 1.0 (0.6-1.2) LA Diam 2.8 (1.9-4.0) LVEF 53% LVIDd 4.5 (3.5-5.7) LVIDs 3.3 (2.0-3.5) %FS 27% LVPWd 1.1 (0.6-1.2) Ao Diam 3.1 (2.0-3.7) 2 DIMENSIONAL ASSESSMENT: RIGHT ATRIUM: NORMAL LEFT ATRIUM: NORMAL RIGHT VENTRICLE: NORMAL LEFT VENTRICLE: NORMAL TRICUSPID VALVE: NORMAL MITRAL VALVE: NORMAL PULMONIC VALVE: NORMAL AORTIC VALVE: NORMAL PERICARDIAL EFFUSION: TRACE AORTIC ROOT: NORMAL LEFT VENTRICULAR WALL MOTION: NORMAL DOPPLER/COLOR FLOW: NORMAL COMMENTS: TRACE PERICARDIAL EFFUSION. NORMAL LEFT VENTRICULAR SIZE AND FUNCTION. NO WALL MOTION ABNORMALITY. NO MITRAL VALVE PROLAPSE. TECHNOLOGIST: GLENIS ALVAREZ
--- NOTE | 2019-06-30 11:46 | P.PN ---
Subjective Date of Service: 06/30/19 Primary Care Provider: Dr. Espinoza; GI-Dr. Carranza Chief Complaint: SOB, chest pain Subjective: Other (Patient doing well this time. Less diarrhea noted. No chest pain or shortness of breath.) Physical Examination - Vital Signs Temperature: 98.0 F Blood Pressure: 94/52 Pulse: 83 Respirations: 17 Pulse Ox (%): 98 - Physical Exam General: Alert, In no apparent distress, Oriented x3, Cooperative HEENT: Atraumatic Respiratory: Clear to auscultation bilaterally Cardiovascular: Normal pulses, Regular rate/rhythm Neurological: Normal speech, Normal strength at 5/5 x4 extr, Normal tone - Studies Medications List Reviewed: Yes Assessment & Plan Discharge Plan: Home Plan to discharge in: 24 Hours Physician Review Additional Text: Impression: Chest pain, shortness of breath with dizziness secondary to orthostatic hypotension related to volume depletion complicated with ulcerative colitis Chronic diarrhea Trace pericardial effusion Plan: Chest pain, shortness of breath with dizziness secondary to orthostatic hypotension related to volume depletion complicated with ulcerative colitis: Patient doing well this time. Patient still orthostatic but not symptomatic when standing. Diarrhea has improved. Spoke with GI. GI reports patient doing well. If patient goes home GI recommends to put patient on prednisone 50 mg daily and taper every 7 days. GI plans to start biologics in the near future. Due to his symptoms will hold off on discharge at this time. Will obtain brain MRI and carotid Doppler. Will review echocardiogram with cardiology. Will discuss with Dr. Lambert about possible discharge later today if workup unremarkable. Chronic diarrhea: Continue as above. Will monitor closely. Trace pericardial effusion: Continue as above. Will discuss with cardiology. Time Spent Managing Pts Care (In Minutes): 55
--- NOTE | 2019-06-30 12:59 | RAD REPORT ---
EXAM DESCRIPTION: MRI - Brain Wo Cont - 06/30/2019 12:35 pm CLINICAL HISTORY: Syncope COMPARISON: none TECHNIQUE: Axial, sagittal, and coronal magnetic images of the brain were obtained. Contrast was not requested FINDINGS: No abnormal signal is present within the brain. Diffusion-weighted/ADC mapping does not reveal evidence of acute infarction. The ventricles are normal caliber. An extra-axial fluid collection is not present Fluid within the sinuses/mastoids is not noted IMPRESSION: No acute abnormality is displayed
--- NOTE | 2019-06-30 13:35 | RAD REPORT ---
EXAM DESCRIPTION: USCarotid Artery Bilateral06/30/2019 1:01 pm CLINICAL HISTORY: syncope COMPARISON: None FINDINGS: The velocity of the right internal carotid artery equals 83 cm/sec. The right ICA/CCA rati o 1. The velocity of the left internal carotid artery equals 86 cm/sec. The left ICA/CCA ratio 1. Plaque is not visualized within the carotid arteries The vertebral arteries demonstrate antegrade flow IMPRESSION: Unremarkable exam NASCET criteria used. Mild 0-49% stenosis Moderate 50-69% stenosis Severe 70-99% stenosis
[2019-06-30 15:45] LABS: C.diff Antigen/Toxin Ag neg : Tox neg (NEG : NEG)
[2019-06-30] MEDS ORDERED: ENSURE ENLIVE 237 ML CAN PO SCH (21:00)
[2019-06-30 21:53] VITALS: BP 102/61; TEMP 98.1
[2019-06-30 22:48] VITALS: O2SAT 94
--- NOTE | 2019-07-01 10:29 | P.DS ---
Discharge Date: 06/30/19 Primary Care Provider: Dr. Espionza; GI-Dr. Carranza Disposition: ROUTINE DISCHARGE Discharge Condition: GOOD Reason for Admission: SOB, chest pain Vital Signs/Physical Exam: Temp Pulse Resp BP Pulse Ox 98.1 F 79 16 102/61 99 06/30/19 20:00 06/30/19 20:00 06/30/19 20:00 06/30/19 20:00 06/30/19 20:00 Laboratory Data at Discharge: WBC 8.4 K/uL (4.3-10.9) 06/30/19 05:05 Hgb 10.0 g/dL (13.6-17.9) L 06/30/19 05:05 Hct 29.6 % (39.6-49.0) L 06/30/19 05:05 Plt Count 669 K/uL (152-406) H 06/30/19 05:05 PT 14.9 SECONDS (9.5-12.5) H 06/29/19 10:14 INR 1.27 06/29/19 10:14 Sodium 139 mmol/L (136-145) 06/30/19 05:05 Potassium 4.8 mmol/L (3.5-5.1) 06/30/19 05:05 BUN 12 mg/dL (7-18) 06/30/19 05:05 Creatinine 0.77 mg/dL (0.55-1.3) 06/30/19 05:05 Glucose 139 mg/dL (74-106) H 06/30/19 05:05 Magnesium 2.0 mg/dL (1.8-2.4) 06/30/19 05:05 Total Bilirubin 0.2 mg/dL (0.2-1.0) 06/30/19 05:05 AST 6 U/L (15-37) L 06/30/19 05:05 ALT 12 U/L (12-78) 06/30/19 05:05 Alkaline Phosphatase 40 U/L (45-117) L 06/30/19 05:05 Home Medications: Mesalamine 3.6 g PO DAILY 06/29/19 Metronidazole 500 mg PO Q8HP 06/29/19 Mesalamine [Delzicol] 3,600 mg PO DAILY capsule. 06/30/19 levoFLOXacin [Levaquin] 250 mg PO DAILY #5 tab 06/30/19 metroNIDAZOLE [Flagyl] 250 mg PO Q8H #14 tablet 06/30/19 predniSONE [Deltasone] 20 mg PO BID #30 tab 06/30/19 New Medications: metroNIDAZOLE [Flagyl] 250 mg PO Q8H #14 tablet levoFLOXacin [Levaquin] 250 mg PO DAILY #5 tab predniSONE [Deltasone] 20 mg PO BID #30 tab Patient Discharge Instructions: OK TO DC IV AND DC HOME. FOLLOW-UP WITH PCP IN 1-2 WEEKS. RETURN TO THE ER IF SYMPTOMS WORSENS. FOLLOW-UP WITH GI IN 1-2 WEEKS. CALL ME AT [phone] IF ANY QUESTIONS REGARDING HOSPITAL STAY Diet: Regular Activity: Fall precautions Followup: Fernando Bettencourt MD [ACTIVE - CAN ADMIT] - Tyrone Emery MD [ASSOCIATE-ACTIVE - CAN ADMIT] -
[2019-07-03 03:23] LABS: HBsAG Nonreactive (Nonreactive)
[2019-07-07 20:50] LABS: Lactoferrin, Stool 368.4 mcg/mL (<30.0)
== END 2019-06-30 22:22 | disposition home or self-care (01) ==
LOC: ER 09:52 → ERHOLD 12:21 → 2ND 15:16
PROVIDERS: ADMIT Family Medicine; ATTEND Family Medicine
DX: E86.9 Volume depletion, unspecified (principal); I95.1 Orthostatic hypotension; K51.90 Ulcerative colitis, unspecified, without complications; K52.9 Noninfective gastroenteritis and colitis, unspecified; R07.9 Chest pain, unspecified; R06.02 Shortness of breath; I31.3 Pericardial effusion (noninflammatory)
CPT/HCPCS: 96361; 93005; 93306; 87040 ×2; 87045; 85025 ×2; 80048 ×2; 36415; 83735 ×2; 87177; 82274; 85610; 80076; 87046; 83605; 87209; 84443; 81003; 87324; 84484; 84439; 80053; 83631; 86317; 86708; 83880; 87449; 82705; 86140; 80074; 71275; 71045; 93880; 70551; 96374; 99285; Q9967; J1650 ×2; J7030 ×4; J2930 ×3; J0744 ×3; G0378 ×3

== ENCOUNTER 2020-02-10 17:18 | Emergency (ER) | payer BC ==
--- NOTE | 2020-02-10 19:45 | ER ---
Nurse's Notes [facility] Name: Jose Armando Culver Age: 39 yrs Sex: Male : 1980 Arrival Date: 02/10/2020 Time: 17:20 Bed 19 Private MD: Diagnosis: Acute upper respiratory infection, unspecified Presentation: 02/09 17:21 Chief complaint: Patient states: fever, fatigue, unable to sleep, SOB x 8 days. COVID sv test done 02/04/20 and was negative. Coronavirus screen: Client denies travel out of the [place] in the last 14 days. fatigue, fever, shortness of breath, Client presents with at least one sign or symptom that may indicate coronavirus-19. Standard/surgical mask placed on the client. Provider contacted for isolation considerations. The client reports previous COVID testing was negative. Ebola Screen: No symptoms or risks identified at this time. Risk Assessment: Do you want to hurt yourself or someone else? Patient reports no desire to harm self or others. Onset of symptoms was February 02, 2020. 17:21 Method Of Arrival: Ambulatory sv 17:21 Acuity: JOHN 3 sv 17:23 Initial Sepsis Screen: Does the patient meet any 2 criteria? HR > 90 bpm. No. Patient's sv initial sepsis screen is negative. Does the patient have a suspected source of infection? No. Patient's initial sepsis screen is negative. Care prior to arrival: Medication(s) given: Tylenol, taken at 1300 today. Triage Assessment: 17:21 General: Appears in no apparent distress. comfortable, Behavior is calm, cooperative, sv appropriate for age. General: Reports fever for > 3 days, fatigue for >3 days. Pain: Denies pain. Neuro: Level of Consciousness is awake, alert, obeys commands, Oriented to person, place, time, situation, Gait is steady. Respiratory: Respiratory effort is even, unlabored, Respiratory pattern is regular, symmetrical. Historical: - Allergies: 17:23 cashew nut; sv 17:23 pistachio nut; sv 17:23 No Known Drug Allergies; sv - PMHx: 17:23 Ulcerative cholitis; sv - PSHx: 17:23 L knee repair; sv - Immunization history:: Flu vaccine is not up to date. - Social history:: Smoking status: Patient denies any tobacco usage or history of. Screenin:06 Abuse screen: Denies threats or abuse. Denies injuries from another. Nutritional sv screening: No deficits noted. Tuberculosis screening: No symptoms or risk factors identified. Fall Risk None identified. Assessment: 18:09 Reassessment: Ok by Alda WOODS to order flu and COVID test. sv 20:05 Reassessment: Patient appears in no apparent distress at this time. No changes from sv previously documented assessment. Patient and/or family updated on plan of care and expected duration. Pain level reassessed. Patient is alert, oriented x 3, equal unlabored respirations, skin warm/dry/pink. Vital Signs: 17:23 BP 116 / 79; Pulse 101; Resp 16; Temp 98.5; Pulse Ox 98% ; Weight 79.38 kg; Height 5 sv ft. 10 in. (177.80 cm); 20:05 BP 111 / 80; Pulse 96; Resp 18; Temp 96.9; Pulse Ox 97% ; sv 17:23 Body Mass Index 25.11 (79.38 kg, 177.80 cm) sv ED Course: 17:20 Patient arrived in ED. as 17:21 Arm band placed on. sv 17:23 Triage completed. sv 20:05 No provider procedures requiring assistance completed. Patient did not have IV access sv during this emergency room visit. 20:06 Alda Napoles FNP-C [facility]. kb 20:06 Fransisco Cross MD is Attending Physician. kb 20:06 Nurse Practitioner and/or Physician Monotype Caster to see patient. sv 20:06 Patient has correct armband on for positive identification. sv Administered Medications: No medications were administered Outcome: 19:44 Patient left the ED. sv 20:06 Discharge ordered by . kb 20:09 Discharged to home ambulatory. sv 20:09 Condition: stable 20:09 Discharge instructions given to patient, Instructed on discharge instructions, follow up and referral plans. Demonstrated understanding of instructions, follow-up care. 20:09 Patient left the ED. sv Addendum: 02/12/2020 14:33 Addendum: COVID-19 Result: Negative result given to RN to notify pt. Notified pt of s s negative COVID 19 swab results. Pt advised that even with a negative test result they should remain in isolation until symptom free for 3 days without medication. Pt also advised to return to the ED for worsening symptoms. Signatures: Alda Napoles, STEREOTYPE CASTER-C STEREOTYPE CASTER-Tamera Lawrence RN RN sv Martinez, Amelia as Smirch, Shelby, RN RN ss Corrections: (The following items were deleted from the chart) 02/09 17:25 17:21 Acuity: JOHN 4 gema ribeiro
--- NOTE | 2020-02-10 20:07 | EDPHYS ---
Physician Documentation [facility] Name: Jose Armando Culver Age: 39 yrs Sex: Male : 1980 Arrival Date: 02/10/2020 Time: 17:20 Bed 19 Private MD: ED Physician Fransisco Cross HPI: 02/09 20:18 This 39 yrs old Male presents to ER via Ambulatory with complaints of Flu kb Symptoms. 20:18 The patient or guardian reports difficulty breathing, flu symptoms. Onset: The kb symptoms/episode began/occurred 8 day(s) ago. Severity of symptoms: At their worst the symptoms were moderate, in the emergency department the symptoms are unchanged. Modifying factors: The symptoms are alleviated by nothing, the symptoms are aggravated by nothing. Associated signs and symptoms: Pertinent positives: fever, Pertinent negatives: chest pain, diarrhea, ear ache, nausea, rhinorrhea, sore throat, vomiting. The patient has not experienced similar symptoms in the past. The patient has not recently seen a physician. Pt reports shortness of breath, malaise, fatigue, fever for 8 days. Received negative COVID test today but states it was through [facility] and he isn't sure if it was a good swab. . Historical: - Allergies: 17:23 cashew nut; sv 17:23 pistachio nut; sv 17:23 No Known Drug Allergies; sv - PMHx: 17:23 Ulcerative cholitis; sv - PSHx: 17:23 L knee repair; sv - Immunization history:: Flu vaccine is not up to date. - Social history:: Smoking status: Patient denies any tobacco usage or history of. ROS: 20:18 Cardiovascular: Negative for chest pain, palpitations, and edema, Abdomen/GI: Negative kb for abdominal pain, nausea, vomiting, diarrhea, and constipation, Back: Negative for injury and pain, MS/Extremity: Negative for injury and deformity, Skin: Negative for injury, rash, and discoloration, Neuro: Negative for headache, weakness, numbness, tingling, and seizure. 20:18 Constitutional: Positive for body aches, fatigue, fever, malaise. 20:18 Respiratory: Positive for cough, shortness of breath. Exam: 20:18 Constitutional: This is a well developed, well nourished patient who is awake, alert, kb and in no acute distress. Head/Face: Normocephalic, atraumatic. Chest/axilla: Normal chest wall appearance and motion. Nontender with no deformity. No lesions are appreciated. Cardiovascular: Regular rate and rhythm with a normal S1 and S2. No gallops, murmurs, or rubs. Normal PMI, no JVD. No pulse deficits. Respiratory: Lungs have equal breath sounds bilaterally, clear to auscultation and percussion. No rales, rhonchi or wheezes noted. No increased work of breathing, no retractions or nasal flaring. Abdomen/GI: Soft, non-tender, with normal bowel sounds. No distension or tympany. No guarding or rebound. No evidence of tenderness throughout. Skin: Warm, dry with normal turgor. Normal color with no rashes, no lesions, and no evidence of cellulitis. MS/ Extremity: Pulses equal, no cyanosis. Neurovascular intact. Full, normal range of motion. Neuro: Awake and alert, GCS 15, oriented to person, place, time, and situation. Cranial nerves II-XII grossly intact. Motor strength 5/5 in all extremities. Sensory grossly intact. Cerebellar exam normal. Normal gait. Vital Signs: 17:23 BP 116 / 79; Pulse 101; Resp 16; Temp 98.5; Pulse Ox 98% ; Weight 79.38 kg; Height 5 sv ft. 10 in. (177.80 cm); 20:05 BP 111 / 80; Pulse 96; Resp 18; Temp 96.9; Pulse Ox 97% ; sv 17:23 Body Mass Index 25.11 (79.38 kg, 177.80 cm) sv MDM: 20:06 Patient medically screened. kb 20:17 Data reviewed: vital signs, nurses notes. Data interpreted: Pulse oximetry: on room air kb is 97 %. Interpretation: normal. Counseling: I had a detailed discussion with the patient and/or guardian regarding: the historical points, exam findings, and any diagnostic results supporting the discharge/admit diagnosis, lab results, the need for outpatient follow up, a family practitioner, to return to the emergency department if symptoms worsen or persist or if there are any questions or concerns that arise at home. 02/09 18:09 Order name: Flu sv 02/09 18:09 Order name: COVID-19 sv Administered Medications: No medications were administered Disposition: 21:09 Co-signature as Attending Physician, Fransisco Cross MD. pkl Disposition: 02/10/20 20:06 Discharged to Home. Impression: Acute upper respiratory infection, unspecified. - Condition is Stable. - Discharge Instructions: Viral Respiratory Infection, [id number], COVID-19. - Medication Reconciliation Form, Thank You Letter, Antibiotic Education, Prescription Opioid Use form. - Follow up: Emergency Department; When: As needed; Reason: Worsening of condition. Follow up: Private Physician; When: 2 - 3 days; Reason: Recheck today's complaints, Continuance of care, Re-evaluation by your physician. Signatures: Dispatcher [employer] [facility] Alda Napoles, KRISTEN GALLAGHERP-Tamera Lawrence, RN RN Fransisco Mcguire MD MD pkjose alberto Corrections: (The following items were deleted from the chart) 19:20 18:18 Chest Single View+[id number].[email or web address] ordered. [facility] 20:06 19:44 02/10/2020 19:44 Patient left the facility before being seen by provider. Reason kb stated they are leaving due to unknown. sv 20:09 20:06 02/10/2020 20:06 Discharged to Home. Impression: Acute upper respiratory sv infection, unspecified. Condition is Stable. Forms are Medication Reconciliation Form, Thank You Letter, Antibiotic Education, Prescription Opioid Use. Follow up: Emergency Department; When: As needed; Reason: Worsening of condition. Follow up: Private Physician; When: 2 - 3 days; Reason: Recheck today's complaints, Continuance of care, Re-evaluation by your physician. kb
[2020-02-11 03:46] VITALS: BP 111/80; TEMP 96.9; O2SAT 97
== END 2020-02-10 20:09 | disposition home or self-care (01) ==
LOC: ER 17:18
DX: J06.9 Acute upper respiratory infection, unspecified (principal); Z20.828 Contact with and (suspected) exposure to other viral communicable diseases; Z91.018 Allergy to other foods
CPT/HCPCS: 87804 ×2; 99281; U0002

== ENCOUNTER 2023-09-20 10:46 | Emergency (ER) | payer BC ==
--- OUTSIDE RECORDS SUMMARY | 2023-09-20 10:48 | XMS REPORT | Continuity of Care Document ---
Author Name Unknown Address [address] [facility]. [address] [place] [id number] [facility] thconnect Address [address] [facility]. [address] [place] [address] Care Team Providers Care Leather Patcher Name Role Phone No, PCP Attending Clinician Unavailable José Miguel Infante Attending Clinician Unavailable José Miguel Infante Admitting Clinician Unavailable Payers Payer Name Policy Type Policy Number Effective Date Expirati on Date Source Allergies, Adverse Reactions, Alerts Allergy Name Allergy Type Status Severity Reaction(s) Onset Date Inactive Date Treating Clinician Comments Source No Known Drug Allergie s DA Active U 06-23 00:00: 00 [facility] No Known Drug Allergie s DA Active U 06-01 00:00: 00 [facility] Encounters Start Date/Time End Date/Time Encounter Type Admission Type Attending Clinicians Care Facility Care Department Encounter ID Source 2023-09-05 16:10:01 Outpatient No, PCP [facility] [id number] 2021-06-23 08:03:00 2021-06-23 08:03:00 Outpatient José Miguel Doss [facility] [id number] [facility] 2021-06-02 05:50:00 2021-06-02 05:50:00 Outpatient José Miguel Doss [facility] DAYS [id number] [facility] Notes Date/Time Note Provider Source 2021-06-23 11:46:00 [id number] 9GFXx5rZjLnS9EG9/1kGRqX5KUVqM 5whjxkAYOwYgGc/2Li7O1E0lvT25502-08-90B72:46:64010 -0057 [facility] [place] [address] PATIENT NAME: LOPEZ SMITH ADMIT DATE: 06/23/21ACCOUNT NO: [id number] ROOM NO: AGE: 41 REPORT TYPE: OPERATIVE REPORT SEX: M ADMITTING PHYSICIAN: ATTENDING PHYSICIAN:José Miguel Infante MD OPERATION DATE: 06/23/2021 PREOPERATIVE DIAGNOSIS: Left knee meniscal tear. POSTOPERATIVE DIAGNOSES: Horizontal tear, posterior horn of lateral meniscus,left knee, S83.282A. PROCEDURES PERFORMED: Left knee diagnostic arthroscopy with an arthroscopicpartial lateral meniscectomy, 50447. ANESTHESIA: General. TOURNIQUET TIME: 13 minutes. ESTIMATED BLOOD LOSS: None. SURGEON: José Miguel Infante MD DEDICATED TRUCK DRIVER: ANDREIA Maldonado OPERATIVE FINDINGS: As above. Other findings noted grade III chondromalaciainvolving the femoral trochlea. SURGICAL SPECIMEN SENT: None. CLINICAL INDICATIONS: Mr. Smith is a very pleasant 41-year-old male from [place], [place], who has been having progressive pain in his left knee for thepast several months. Catching, locking, and swelling are noted. His pain hasnot abated despite nonoperative intervention. Due to his progressive disabilityand lack of response to nonoperative treatment, he is admitted for arthroscopicmeniscectomy. OPERATIVE NARRATIVE: LEFT KNEE DIAGNOSTIC ARTHROSCOPY WITH AN ARTHROSCOPICPARTIAL LATERAL MENISCECTOMY, 29196. Mr. Smith was brought to the operative suite, at which time, he was placed insupine position on the OR table. Routine monitors were established. Generalanesthesia was delivered. After satisfactory induction of general anesthesia, atourniquet was applied to the patient's left lower extremity per Ms. Maldonado andthe leg was placed in arthroscopic leg marx per Ms. Maldonado. The leg was thenelevated, exsanguinated, tourniquet insufflated to 300 mmHg. The left knee wascircumferentially prepped and draped in usual sterile fashion per Ms. Maldonado. PATIENT NAME: LOPEZ SMITH Anterior arthroscopic portals were established. Systematic arthroscopicevaluation performed. Patellofemoral evaluation revealed a contained grade IIIlesion involving the femoral trochlea measuring 2 x 2 cm. No unstable cartilagewas present. Grade II to III changes involving patellar apex were present. Again, no unstable cartilage was noted. Medial gutter was unremarkable. Medialcompartment revealed no meniscal or articular cartilage pathology. Femoralnotch revealed an intact anterior as well as posterior cruciate ligament. Lateral compartment revealed tearing involving the posterior horn and body oflateral meniscus, which was resected. No significant chondral pathology wasnoted with the exception of early grade II change involving the lateral tibialplateau. Debridement was performed to any and all unstable articular cartilage. Popliteal recess revealed no loose bodies. Thorough lavage was performed with lactated Ringer's solution. Arthroscopicportals were closed respectively with a 4-0 nylon suture per Ms. Maldonado. Sterile dressing was applied by Ms. Maldonado. The patient was then extubated,taken to recovery room awake and alert without any anesthetic or operativecomplications. At the end of the case, sponge and needle counts were correctx2. During the procedure, Ms. Maldonado was invaluable in positioning the patientwith preparation and draping of extremity. She was vital for providing surgicalexposure throughout the procedure in addition to closure of the postoperativeincisions and application of postoperative dressing. Dictated By: José Miguel Infante MD WT: OP:YDARLYN/AARON/NTSDD: 06/23/2021 11:46:02DT: 06/23/2021 17:27:00Conf#: [id number]/[facility]#: [id number] Authenticated by José Miguel Infante MD On 06/26/2021 02:20:52 PM at 0220 PATIENT NAME: LOPEZ SMITH seghsy4763-21-16Z46:27:00Y.[id number] lable for patient hvbtLSEPKWLNHQXMWJ1135-42-94K13:21:15 [facility] 2021-06-23 06:26:00 [id number]/KPayjEB dw87TOEaIQ/09ttzL9quxH6AhgQfi 1s92XA8oQu17ZOFHe8zewH/Tegx0313-25-58M57:26:00 [facility] ([facility])Brief Op NoteREPORT#:[id number] REPORT STATUS: SignedDATE:06/23/21 TIME: 625 PATIENT: LOPEZ SMITH UNIT #: [id number]#: [id number] ROOM/BED:: 78 AGE: 41 SEX: M ATTEND: José Miguel Infante AUTHOR: Meseret Maldonado * ALL edits or amendments must be made on the electronic/computer document * Op/Inv Proc Note - BriefPre-procedure diagnosis:Right knee meniscus tearPost-procedure diagnosis: same as pre procedure dxProcedures performed:Right knee arthroscopy, partial lateral meniscectomyPrimary Surgeon:AngeloeAssistant(s): Erica BOSWELL-CFindings:as aboveComplications: noneEstimated blood loss in ml's: noneSpecimens removed/altered: none at 1145 at 1414 RPT #:[id number] OF REPORT OPOperative ooispn2694-06-97Q11:26:00Y.QVWP87060620-5875KMXbq ilable for patient cwskLGWBLXURWABDPQ5086-91-57U23:46:13 [facility] 2021-06-21 16:20:00 [id number] MlW/VDuccsWs0IgVBrmfGIBxfixSC 9e5qIYoYwPb1p5Q3ZbENienHs+/7536-69-60O98:20:68016 0-0051 [facility] [address] [address] PATIENT NAME: LOPEZ SMITH ADMIT DATE: ACCOUNT NO: [id number] ROOM NO: AGE: 41 REPORT TYPE: HISTORY AND PHYSICAL SEX: M ADMITTING PHYSICIAN: ATTENDING PHYSICIAN:José Miguel Infante MD ADMISSION DATE: 06/23/2021 ADMITTING DIAGNOSIS: Left knee meniscal tear. 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 He is experiencing pain on a regularbasis. His pain is not abated despite nonoperative treatment. His clinical aswell as radiographic evaluation demonstrates an ongoing meniscal tear. Due tohis progressive disability and lack of response to nonoperative treatment, he isadmitted for diagnostic arthroscopy, meniscectomy with a potentialchondroplasty. PAST MEDICAL HISTORY: Ulcerative colitis. PAST SURGICAL HISTORY: Include bilateral knee arthroscopies and a release ofhis Quervain's tenosynovitis of his wrist. FAMILY HISTORY: Unremarkable. SOCIAL HISTORY: He is single. He does not smoke nor does he drink. MEDICATIONS: Consist of Humira. ALLERGIES: NO ALLERGIES ARE LISTED. REVIEW OF SYSTEMS: Negative. PHYSICAL EXAMINATION:VITAL SIGNS: 5 feet 10 inches tall, 81.8 kg.HEENT: Within normal limits.CARDIAC: Regular rate and rhythm. No murmur.CHEST: Clear.ABDOMEN: Benign.BACK: No CVA tenderness.PERTINENT ORTHOPEDIC EVALUATION: Leg lengths are equal. Full painless motionof both hips. Examination of the left knee reveals a positive effusion. He haspain on the lateral joint line with a positive Milady sign. No instability ispresent. His distal neurovascular status is intact. DIAGNOSTIC DATA: Radiographic evaluation, there are no arthritic changes. MRIevaluation reveals a prominent tear involving the posterior horn of the lateral PATIENT NAME: LOPEZ SMITH meniscus. ASSESSMENT: Symptomatic lateral meniscal tear, left knee. SURGICAL PLAN: Arthroscopic meniscectomy. I have gone over at length with the associated risks involved with this procedure. He understands theserisks include but not limited to bleeding, infection, neurovascular damage,persistent pain, loss of motion, need for further operative intervention,recurrent tear, posttraumatic arthritis, deep vein thrombi leading to pulmonaryemboli along with complications secondary to anesthesia. He further understandsthat there are no guarantees or warranties that he will be pain free as a resultof the procedure. Mr. Smith accepts these risks and [facility]. Dictated By: José Miguel Infante MD WT: HP:ALISHA/AARON/NTSDD: 06/21/2021 16:20:43DT: 06/21/2021 17:39:25Conf#: [id number]/DID#: [id number] by José Miguel Infante MD On 06/22/2021 01:18:07 PM at 0118 PATIENT NAME: LOPEZ SMITH and physical xvrfczbftqe6554-64-36O01:39:00Y.[id number] VAvailable for patient psglCRYXSMNEREEPLP3081-35-97Z97:18:33 [facility] 2021-06-02 07:30:00 [id number] YA7gm3G740G/AvQ7qJk6uYp5lPU+K jA89mbmsyWZwJTYEfoleZN6ye8R5927-14-67J68:30:86140 -0017 [facility] [place] [address] PATIENT NAME: LOPEZ SMITH ADMIT DATE: 06/02/21ACCOUNT NO: [id number] ROOM NO: AGE: 41 REPORT TYPE: OPERATIVE REPORT SEX: M ADMITTING PHYSICIAN: ATTENDING PHYSICIAN:José Miguel Infante MD OPERATION DATE: 06/02/2021 PREOPERATIVE DIAGNOSIS: Right knee meniscal tear. POSTOPERATIVE DIAGNOSES:1. Horizontal tear, posterior horn of medial meniscus, right knee, S83.241A.2. Radial tear, posterior horn of lateral meniscus, right knee, S83.281A.3. A 5 mm loose body, suprapatellar pouch, right knee, M23.41. PROCEDURES PERFORMED:1. Right knee diagnostic arthroscopy with an arthroscopic partial medial andlateral meniscectomy, 52693.2. Arthroscopic loose body removal, 54169. ANESTHESIA: General. TOURNIQUET TIME: 11 minutes. ESTIMATED BLOOD LOSS: None. SURGEON: José Miguel Infante M.D. DEDICATED TRUCK DRIVER: Efra Maksymowski, OPA, LSA OPERATIVE FINDINGS: As above. ADDITIONAL FINDINGS: Grade IV contained chondral lesion, femoral trochlea. CLINICAL INDICATIONS: Ms. Smith is a 41-year-old male from [place], [place], who has been having progressive pain in his right knee. His pain isoccurring on a daily basis. His pain has been refractory to nonoperativeintervention. Due to his progressive disability and lack of response tononoperative treatment, he is admitted for arthroscopic meniscectomy withpotential chondroplasty. OPERATIVE NARRATIVE:1. RIGHT KNEE DIAGNOSTIC ARTHROSCOPY WITH AN ARTHROSCOPIC PARTIAL MEDIAL ANDLATERAL MENISCECTOMY, 01852.2. ARTHROSCOPIC LOOSE BODY REMOVAL, 79725. Mr. Smith was brought to the operative suite, at which time, he was placed insupine position on the OR table. Routine monitors were established. General PATIENT NAME: LOPEZ SMITH anesthesia was delivered. After satisfactory induction of general anesthesia, atourniquet was applied to the patient's right lower extremity per and the leg was placed in arthroscopic leg marx per . The leg was then elevated, exsanguinated, tourniquet insufflatedto 300 mmHg. The right knee was circumferentially prepped and draped in usualsterile fashion per Mr. Greenberg. Anterior arthroscopic portals wereestablished. Systematic arthroscopic evaluation performed. The suprapatellarpouch revealed a 5 mm loose body, which was removed without difficulty. Patellofemoral evaluation revealed no significant chondral pathology involvingthe patella. A contained grade IV lesion involving the femoral trochlea wasnoted measuring 2.5 x 3 cm. Debridement was performed to any and all unstablearticular cartilage. Medial gutter was unremarkable. Medial compartmentrevealed a horizontal tear involving the posterior horn of the medial meniscus,which was resected. No chondral pathology was noted. Femoral notch revealed anintact anterior as well as posterior cruciate ligament. Lateral compartmentrevealed postsurgical changes from prior meniscectomy, radial tear of theposterior horn was encountered and this was resected. No significant chondralpathology was noted. The popliteal recess demonstrated no further loose bodies. Thorough lavage was performed with lactated Ringer's solution. Arthroscopicportals were closed respectively with a 4-0 nylon suture per Mr. Greenberg. Asterile dressing was applied by Mr. Greenberg. The patient was thenextubated, taken to recovery room awake and alert without any anesthetic oroperative complications. At the end of the case, sponge and needle counts werecorrect x2. During the procedure, Mr. Greenberg was invaluable in positioningthe patient with preparation and draping of extremity. She was also responsiblefor providing surgical exposure throughout the procedure in addition to closureof the postoperative incisions and application of postoperative dressing. Dictated By: José Miguel Infante MD WT: OP:YDARLYN/AARON/NTSDD: 06/02/2021 07:30:07DT: 06/02/2021 09:32:56Conf#: [id number]/DID#: [id number] Authenticated by José Miguel Infante MD On 06/02/2021 03:28:21 PM at 0328 PATIENT NAME: LOPEZ SMITH mqxotw8038-80-35T86:32:00Y.[id number] lable for patient cgbvBLRBLBLKHBIXMU1396-38-71B16:28:56 [facility] 2021-06-02 06:09:00 [id number] QX63WMArdDisJ9nt2Nr/EBTJb6VX6 WtU4fAL4BqLUAY/TIVIvzqiyCUb5094-96-93A97:09:00 [facility] ([facility])Brief Op NoteREPORT#:[id number] REPORT STATUS: SignedDATE:06/02/21 TIME: 608 PATIENT: LOPEZ SMITH UNIT #: [id number]#: [id number] ROOM/BED:: 78 AGE: 41 SEX: M ATTEND: José Miguel Infante AUTHOR: Meseret Maldonado * ALL edits or amendments must be made on the electronic/computer document * Op/Inv Proc Note - BriefPre-procedure diagnosis:right knee meniscus tearPost-procedure diagnosis: same as pre procedure dxProcedures performed:Right knee arthroscopy, partial medial meniscectomy and lateral meniscectomy andloose body removalPrimary Surgeon:Lorenzotant(s): Dionicio LSAFindings:as aboveComplications: noneEstimated blood loss in ml's: noneSpecimens removed/altered: none at 0728 at 1524 [facility] #:[id number] OF REPORT OPOperative wnckch4017-59-59T18:09:00Y.SISB79295081-5641KLMtb ilable for patient pbxxLMCLPPZBSQHDAS4123-92-81G96:29:14 [facility] 2021-05-31 17:34:00 [id number] vN/71Fr3kDAELa2pFqP3G81pbtc5i Z01XTTq0hIQQvwzJs1S9eL2ErKL7263-70-84A01:34:00334 0-0026 [facility] [place] [address] PATIENT NAME: LOPEZ SMITH ADMIT DATE: ACCOUNT NO: [id number] ROOM NO: AGE: 41 REPORT TYPE: HISTORY AND PHYSICAL SEX: M ADMITTING PHYSICIAN: ATTENDING PHYSICIAN:José Miguel Infante MD ADMISSION DATE: 06/02/2021 ADMITTING DIAGNOSIS: Right knee meniscal tear. 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 His pain is occurring on a daily basis. His pain has affected both hiswork as well as recreational activity. His clinical as well as radiographicevaluation revealed a symptomatic meniscal tear. Due to his progressivemechanical pathology and lack of response to nonoperative treatment, he isadmitted for arthroscopic meniscectomy. PAST MEDICAL HISTORY: Ulcerative colitis. PAST SURGICAL HISTORY: Include bilateral knee arthroscopies and de Quervain'srelease. FAMILY HISTORY: Unremarkable. SOCIAL HISTORY: He is single. He does physical work as a permanentcoordinator. He does not smoke nor does he drink. MEDICATIONS: Consist of Humira. ALLERGIES: NO ALLERGIES ARE LISTED. REVIEW OF SYSTEMS: Negative. PHYSICAL EXAMINATION:VITAL SIGNS: Height 5 feet 8 inches tall and 81.8 kilograms.HEENT: Within normal limits.CARDIAC: Regular rate and rhythm. No murmur.CHEST: Clear.ABDOMEN: Benign.BACK: No CVA tenderness.PERTINENT ORTHOPEDIC EVALUATION: Leg lengths are equal. Full painless motionof both hips. Examination of the right knee reveals an antalgic gait. He has apositive effusion. He has 0 to 120 degrees of motion. He has pain along thejoint line with positive Ivory sign. There is no appreciable instability. His distal neurovascular status is intact. PATIENT NAME: LOPEZ SMITH DIAGNOSTIC DATA: Radiographic evaluation revealed mild joint space narrowinglaterally. MRI evaluation of the right knee demonstrates a complex tearinvolving the lateral meniscus. Chondromalacia was noted involving the lateraltibial plateau and lateral trochlea. ASSESSMENT: Symptomatic meniscal tearing with secondary chondromalacia. SURGICAL PLAN: Arthroscopic meniscectomy and potential chondroplasty. I havegone over at length with Mr. Smith the associated risks involved with thisprocedure. He understands that these risks include but not limited to bleeding,infection, neurovascular damage, persistent pain, loss of motion, need forfurther operative intervention, recurrent tear, progression of theosteoarthritis, need for further operative intervention, deep vein thrombileading to pulmonary emboli along with complications secondary to anesthesia. He further understands that there are absolutely no guarantees or warrantiesthat he will be pain free as a result of the procedure. He accepts these risksand gives his informed consent to proceed. Dictated By: José Miguel Infante MD WT: HP:ALISHA/AARON/HAIDERDD: 05/31/2021 17:34:04DT: 05/31/2021 17:52:17Conf#: [id number]/DID#: [id number] by José Miguel Infante MD On 06/01/2021 03:05:54 PM at 0305 PATIENT NAME: LOPEZ SMITH and physical nlkgrcjamxh6164-08-53G49:52:00Y.[id number] VAvailable for patient rplgJAYLNSYQLWNSJY0321-72-93I24:06:29 [facility]
[2023-09-20 11:59] LABS: Absolute Eosinophils 0.1 K/uL (0-0.5); Absolute Lymphocytes (CBC) 2.4 K/uL (0.7-4.9); Absolute Monocytes 0.6 K/uL (0.1-1.3); Absolute Neutrophil 2.5 K/uL (1.8-8.0); Basophils % 0.6 % (0-1.3); Eosinophils % 1.8 % (0-4.4); Hematocrit 43.6 % (39.6-49.0); Hemoglobin 14.4 g/dL (13.6-17.9); Lymphocytes % 42.5 % (15.3-44.8); MCH 32.1 pg (27.0-35.0); MCHC 33.1 g/dL (32.0-36.0); MCV 97.1 fL (80-100); MPV 6.8 fL (7.6-11.3); Neutrophils % 44.1 % (41.7-73.7); Nucleated Red Blood Cells % 0.2 % (0-0); Platelets 255 thou/uL (152-406); RBC Red Blood Cell Count 4.49 M/uL (4.33-5.43); Red Cell Distribution Width 14.4 % (12.1-15.2)
[2023-09-20 12:02] LABS: Specific Gravity < 1.005 (1.005-1.030); Sqamous Epithelial None Seen /HPF (None Seen); Urine Bacteria None Seen /HPF (<20); Urine Bilirubin NEGATIVE (Negative); Urine Blood 3+ (Negative); Urine Clarity Turbid (Clear); Urine Color Colorless (Yellow); Urine Culture Reflex Order NOT NEEDED; Urine Glucose NEGATIVE (Negative); Urine Ketones NEGATIVE (Negative); Urine Microscopic Reflex YN ORDER UMIC; Urine Nitrite NEGATIVE (Negative); Urine Protein NEGATIVE (Negative); Urine RBC <5 /HPF (None Seen); Urine Urobilinogen Normal (Normal); Urine WBC <5 /HPF (<5)
[2023-09-20 12:09] LABS: Albumin 3.9 g/dL (3.4-5.0); Albumin/Globulin Ratio 1.1 (1.1-1.8); Anion Gap 7.7 mEq/L (5.0-15.0); Bilirubin Total 0.7 mg/dL (0.2-1.0); Globulin 3.4 g/dL (2.3-3.5); Potassium 3.7 mEq/L (3.5-5.1); Protein, Total 7.3 g/dL (6.4-8.2)
--- NOTE | 2023-09-20 12:16 | RAD REPORT ---
EXAM DESCRIPTION: CT - Stone Protocol - 09/20/2023 11:50 am CLINICAL HISTORY: HEMATURIA COMPARISON: Abdomen Pelvis W Contrast dated 06/18/2019 TECHNIQUE: CT imaging of the abdomen and pelvis was performed without IV contrast. Multiplanar refor mats were generated and reviewed. All CT scans are performed using dose optimization technique as appropriate and may include automated exposure control or mA/KV adjustment according to patient size. FINDINGS: No suspicious findings in the lung bases. The liver, spleen adrenal glands, and pancreas show no suspicious findings. Gallbladder and biliary t ree are also without suspicious finding. No hydronephrosis or suspicious renal mass. No significant adrenal finding. Isodense masses and pyel onephritis cannot be excluded in the absence of IV contrast. No dilated bowel loops or bowel wall thickening. No free air, free fluid or inflammatory stranding. N o hernia, mass or bulky lymphadenopathy. The urinary bladder is without significant finding. No suspicious bony findings. Lower lumbar spine degenerative changes with grade 1 anterolisthesis of L4 over L5, measuring approximately 6 mm. IMPRESSION: Non-contrast enhanced CT abdomen and pelvis showing no significant or suspicious finding . Full assessment is limited is the absence of IV contrast.
--- NOTE | 2023-09-20 12:51 | ER ---
Nurse's Notes [facility] Name: Jose Armando Culver Age: 43 yrs Sex: Male : 1980 Arrival Date: 09/20/2023 Time: 10:46 Bed 10 Private MD: Diagnosis: Hematuria, unspecified Presentation: 09/19 11:19 Chief complaint: Patient states: PT reports blood in urine this morning. Denies trauma, hb denies pain, reports mild stinging after urination. Coronavirus screen: Vaccine status: Patient reports being unvaccinated. Client denies travel out of the [place] in the last 14 days. Ebola Screen: Patient negative for fever greater than or equal to 101.5 degrees Fahrenheit, and additional compatible Ebola Virus Disease symptoms Patient denies exposure to infectious person. Patient denies travel to an Ebola-affected area in the 21 days before illness onset. Initial Sepsis Screen: Does the patient meet any 2 criteria? No. Patient's initial sepsis screen is negative. Does the patient have a suspected source of infection? No. Patient's initial sepsis screen is negative. Risk Assessment: Do you want to hurt yourself or someone else? Patient reports no desire to harm self or others. Onset of symptoms was September 20, 2023 at 08:00. 11:19 Method Of Arrival: Ambulatory hb 11:19 Acuity: JOHN 3 hb Triage Assessment: 11:20 General: Appears in no apparent distress. comfortable, Behavior is calm, cooperative. hb Pain: Complains of pain in groin Quality of pain is described as burning. : Reports burning with urination, since 0800 blood in urine. 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 - Infectious Disease History:: Denies. - Social history:: Smoking status: Patient denies any tobacco usage or history of. - Family history:: not pertinent. - Hospitalizations: : No recent hospitalization is reported. Screenin:10 [facility] ED Fall Risk Assessment (Adult) History of falling in the last 3 months, tl4 including since admission No falls in past 3 months (0 pts) Confusion or Disorientation No (0 pts) Intoxicated or Sedated No (0 pts) Impaired Gait No (0 pts) Mobility Assist Device Used No (0 pt) Altered Elimination No (0 pt) Score/Fall Risk Level 0 - 2 = Low Risk Oriented to surroundings, Maintained a safe environment, Educated pt \T\ family on fall prevention, incl call for assistance when getting out of bed, Assessed \T\ reinforced patient's understanding of fall precautions. Abuse screen: Denies threats or abuse. Denies injuries from another. Nutritional screening: No deficits noted. Tuberculosis screening: No symptoms or risk factors identified. Assessment: 12:08 General: Appears in no apparent distress. Behavior is calm, cooperative. Pain: Denies tl4 pain. Neuro: Level of Consciousness is awake, alert, obeys commands, Oriented to person, place, time, situation, Moves all extremities. Full function Speech is normal. Cardiovascular: Capillary refill < 3 seconds Patient's skin is warm and dry. Respiratory: Airway is patent Respiratory effort is even, unlabored, Respiratory pattern is regular, symmetrical, Breath sounds are clear bilaterally. GI: No signs and/or symptoms were reported involving the gastrointestinal system. : Reports blood in urine. EENT: No signs and/or symptoms were reported regarding the EENT system. Derm: No signs and/or symptoms reported regarding the dermatologic system. Musculoskeletal: No signs and/or symptoms reported regarding the musculoskeletal system. Vital Signs: 11:19 BP 140 / 090; Pulse 59; Resp 18; Temp 96.8; Pulse Ox 100% ; Weight 88.45 kg; Height 5 hb ft. 10 in. ; Pain 2/10; 13:07 BP 122 / 70; Pulse 60; Resp 16; Temp 98.1(O); Pulse Ox 100% on R/A; Pain 0/10; tl4 11:19 Body Mass Index 27.98 (88.45 kg, 177.8 cm) hb 11:19 Pain Scale: Adult hb 13:07 Pain Scale: Adult tl4 ED Course: 10:47 Patient arrived in ED. mr 10:54 Yandel Young MD is Attending Physician. rn 11:20 Triage completed. hb 11:20 Arm band placed on right wrist. hb 11:43 Missed attempt(s): 20 gauge in left antecubital area. Bleeding controlled, band aid mb4 applied, catheter tip intact. 11:50 CT Stone Protocol In Process Unspecified. EDMS 11:50 CBC with Diff Sent. mb4 11:50 CMP Sent. mb4 11:50 Urinalysis w/ reflexes Sent. mb4 11:50 Inserted saline lock: 22 gauge in left antecubital area, using aseptic technique. Blood mb4 collected. 13:08 Patient has correct armband on for positive identification. Bed in low position. Call tl4 light in reach. Side rails up X 1. Provided Education on: ed process, call osman. Client placed on continuous cardiac and pulse oximetry monitoring. NIBP monitoring applied. Door closed. Noise minimized. Moved to private room. Pillow given. 13:08 No provider procedures requiring assistance completed. IV discontinued, intact, tl4 bleeding controlled, No redness/swelling at site. Pressure dressing applied. Administered Medications: No medications were administered Medication: 13:06 VIS not applicable for this client. tl4 Outcome: 12:51 Discharge ordered by . rn 13:08 Discharged to home ambulatory, tl4 13:08 Condition: stable 13:08 Discharge instructions given to patient, Instructed on discharge instructions, follow up and referral plans. Demonstrated understanding of instructions, follow-up care, 13:09 Patient left the ED. tl4 Signatures: Dispatcher [employer] [facility] Janet Gracia, Reg Reg mr Yandel Young MD MD rn Baxter, Heather, RN RN hb Baxter, Mackenzie 4 Phil Rodriguez RN RN tl4 Corrections: (The following items were deleted from the chart) 11:22 11:20 Home Meds: Humibid DM Oral; hb hb
--- NOTE | 2023-09-20 12:52 | EDPHYS ---
Physician Documentation [facility] Name: Jose Armando Culver Age: 43 yrs Sex: Male : 1980 Arrival Date: 09/20/2023 Time: 10:46 Bed 10 Private MD: ED Physician Yandel Young HPI: 09/19 11:37 This 43 yrs old Male presents to ER via Ambulatory with complaints of Blood in urine. rn 11:37 The patient presents with urinary symptoms, Hematuria. Onset: The symptoms/episode rn began/occurred 2 day(s) ago. Modifying factors: The symptoms are alleviated by nothing, the symptoms are aggravated by nothing. Severity of symptoms: At their worst the symptoms were mild, in the emergency department the symptoms have improved. 11:38 The patient has not experienced similar symptoms in the past. Patient reports hematuria rn for the last 2 days. Had hematuria this morning but has urinated since then without blood. Reports mild dysuria. No history of kidney stones. No family history of kidney cancer or masses. This is never happened to him before. Denies any flank or abdominal pain. No blood thinners. Takes Humira. 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 - Infectious Disease History:: Denies. - Social history:: Smoking status: Patient denies any tobacco usage or history of. - Family history:: not pertinent. - Hospitalizations: : No recent hospitalization is reported. ROS: 11:38 Constitutional: Negative for fever, chills, and weight loss, Cardiovascular: Negative rn for chest pain, palpitations, and edema, Respiratory: Negative for shortness of breath, cough, wheezing, and pleuritic chest pain, Abdomen/GI: Negative for abdominal pain, nausea, vomiting, diarrhea, and constipation, Back: Negative for injury and pain, : Positive for hematuria and dysuria MS/Extremity: Negative for injury and deformity, Skin: Negative for injury, rash, and discoloration, Neuro: Negative for headache, weakness, numbness, tingling, and seizure, Exam: 11:38 Constitutional: This is a well developed, well nourished patient who is awake, alert, rn and in no acute distress. Cardiovascular: Regular rate and rhythm. No pulse deficits. Respiratory: No increased work of breathing, no retractions or nasal flaring. Abdomen/GI: Soft, non-tender Back: No spinal tenderness. No costovertebral tenderness. Full range of motion. Skin: No rashes or petechia Neuro: Awake and alert, GCS 15 Vital Signs: 11:19 BP 140 / 090; Pulse 59; Resp 18; Temp 96.8; Pulse Ox 100% ; Weight 88.45 kg; Height 5 hb ft. 10 in. ; Pain 2/10; 13:07 BP 122 / 70; Pulse 60; Resp 16; Temp 98.1(O); Pulse Ox 100% on R/A; Pain 0/10; tl4 11:19 Body Mass Index 27.98 (88.45 kg, 177.8 cm) hb 11:19 Pain Scale: Adult hb 13:07 Pain Scale: Adult tl4 MDM: 10:54 Patient medically screened. rn 12:50 Differential diagnosis: UTI, urethritis, Bladder cancer bladder polyp, kidney stone, rn kidney cancer. Data reviewed: vital signs, nurses notes, lab test result(s), radiologic studies, CT scan, and as a result, I will discharge patient. Counseling: I had a detailed discussion with the patient and/or guardian regarding the historical points, exam findings, and any diagnostic results supporting the discharge/admit diagnosis, lab results, radiology results, the need for outpatient follow up, to return to the emergency department if symptoms worsen or persist or if there are any questions or concerns that arise at home. Special discussion: I discussed with the patient/guardian in detail that at this point there is no indication for admission to the hospital. It is understood, however, that if the symptoms persist or worsen the patient needs to return immediately for re-evaluation. Based on the history and exam findings, there is no indication for further emergent testing or inpatient evaluation. I discussed with the patient/guardian the need to see the urologist for further evaluation of the symptoms. ED course: No acute findings and workup. Imaging does not show any kidney stones or masses. Recommend urology follow-up for possible cystoscope especially if bleeding continues. No gross hematuria since this morning. Urine here only shows microscopic but no gross hematuria. I have personally reviewed all of the results, including but not limited to blood tests and imaging deemed necessary to safely discharge this patient at this time. All results given to and printed out for patient. I personally went over all the results with the patient and answered all questions. Patient will follow-up with PCP and or specialist as discussed. Return precautions given and understood.. 09/19 11:24 Order name: CBC with Diff; Complete Time: 12:38 rn 09/19 11:24 Order name: CMP; Complete Time: 12:38 rn 09/19 11:24 Order name: Urinalysis w/ reflexes; Complete Time: 12:38 rn 09/19 11:24 Order name: CT Stone Protocol; Complete Time: 12:38 rn 09/19 11:24 Order name: IV Saline Lock; Complete Time: 11:50 rn 09/19 11:24 Order name: Labs collected and sent; Complete Time: 11:50 rn Administered Medications: No medications were administered Disposition Summary: 09/20/23 12:51 Discharge Ordered Notes: Location: Home rn Problem: new rn Symptoms: have improved rn Condition: Stable rn Diagnosis - Hematuria, unspecified rn Followup: rn - With: Private Physician - When: As needed - Reason: Recheck today's complaints, Re-evaluation by your physician Discharge Instructions: - Discharge Summary Sheet rn - Hematuria, Adult rn Forms: - Medication Reconciliation Form rn - Antibiotic pattern cleaner - Prescription Opioid Use rn - Patient Portal Instructions rn - Leadership Thank You Letter rn Signatures: Dispatcher [employer] Yandel Jean MD MD rn Baxter, Heather, RN RN hb Corrections: (The following items were deleted from the chart) 11:22 11:20 Home Meds: Humibid DM Oral; hb hb
[2023-09-20 13:31] VITALS: BP 122/70; TEMP 98.1; O2SAT 100
== END 2023-09-20 13:09 | disposition home or self-care (01) ==
LOC: ER 10:46
DX: R31.9 Hematuria, unspecified (principal); R30.0 Dysuria; Z91.018 Allergy to other foods
CPT/HCPCS: 36415; 74176; 76377; 80053; 81001; 85025; 99284